=== PATIENT | female | born 1985 | race Caucasian/White ===

== ENCOUNTER 2020-09-03 21:19 | Emergency (ER) | payer MEDICARE, MEDICAID, SELFPAY ==
[2020-09-03 21:27] VITALS: BP 138/88; BP 166/91; PULSE 73; PULSE 89; RESP 18; TEMP 36.8; O2SAT 97; O2SAT 98; BMI 39.4
[2020-09-03 22:11] LABS: MANUAL DIFF FLAG NO
[2020-09-03 22:12] LABS: Basophils Absolute Auto 0.1 X10*3/uL (0.0-0.2); Basophils Percent Auto 1.2 % (0-2); Eosinophils Absolute Auto 0.2 X10*3/uL (0.0-0.4); Eosinophils Percent Auto 2.4 % (0-4); Hematocrit 42.8 % (37-47); Hemoglobin 14.3 g/dl (12.0-16.0); Imm Gran Abs Auto 0.05 X10*3/uL (0.00-0.03); Imm Gran Pct Auto 0.5 % (0.0-0.4); Lymphocytes Absolute Auto 3.7 X10*3/uL (1.2-4.9); Lymphocytes Percent Auto 36.7 % (20-40); Mean Corpuscular HGB Conc 33.4 g/dl (31.0-35.0); Mean Corpuscular Hemoglobin 30.3 pg (27.0-33.0); Mean Corpuscular Volume 90.7 fL (80-98); Mean Platelet Volume 9.7 fL (9.4-12.3); Monocytes Absolute Auto 0.8 X10*3/uL (0.1-1.2); Monocytes Percent Auto 7.7 % (2-11); Neutrophils Absolute Auto 5.2 X10*3/uL (2.0-8.3); Neutrophils Percent Auto 51.5 % (45-73); Platelet Count 303 X10*3/uL (160-400); Red Blood Count 4.72 X10*6/uL (4.20-5.50); Red Cell Distribution Width 12.2 % (11.0-16.0); White Blood Count 10.1 X10*3/uL (4.8-10.8)
--- NOTE | 2020-09-03 22:13 | ED.ABDPAIN ---
HPI - Abdominal Pain General Chief Complaint: Abdominal Pain Stated Complaint: abd pain x 3 months Time Seen by Provider: 09/03/20 21:39 Source: patient Limitations: no limitations History of Present Illness HPI narrative: This is a 35-year-old female who presents with recurrence of known left upper quadrant pain that she states she has been pending GI evaluation since May without successful establishment of an appointment. This pain is sharp and stabbing in nature and she states does not radiate and is not associated with fevers, chills, nausea, vomiting, diarrhea, urinary pain / burning / frequency. Related Data Allergies Allergy/AdvReac Type Severity Reaction Status Date / Time acetaminophen [From TYLENOL] Allergy Unknown stomach Verified 09/03/20 21:27 ulcers gluten [GLUTEN] Allergy Unknown UNKNOWN Verified 09/03/20 21:27 latex [LATEX] Allergy Unknown rash/hives Verified 09/03/20 21:27 lithium [LITHIUM] Allergy Unknown hives Verified 09/03/20 21:27 phenobarbital Allergy Unknown UNKNOWN Verified 09/03/20 21:27 risperidone [From RISPERDAL] Allergy Unknown hives Verified 09/03/20 21:27 shellfish derived Allergy Unknown ANAPHYLAXIS Verified 09/03/20 21:27 [SHELLFISH DERIVED] Review of Systems Review of Systems Pertinent positives and negatives as stated in HPI 10 point review of systems is otherwise negative. Physical Exam Vital Signs: Vital Signs: Vital Signs Temp Pulse Resp BP Pulse Ox 09/03/20 22:47 98.5 F 74 20 135/85 97 09/03/20 21:27 98.3 F 73 18 166/91 H 97 Body Mass Index 39.4 VITAL SIGNS: Reviewed. GENERAL: Well developed, well nourished, in no acute distress. HEAD: Normocephalic/atraumatic, EYES: PERRLA, EOMI intact without pain, no nystagmus/pallor/icterus noted EARS: Ext canals without abnormality, TMs non-bulging and non-erythematous NOSE: Nares patent bilateral OROPHARYNX: no oral lesions noted, posterior pharynx clear and non-erythematous without noted tonsillar enlargement/erythema/exudates NECK: Supple, no adenopathy LUNGS: Normal breath sounds. No adventitious sounds or accessory muscle use. SpO2<97%> CARDIOVASCULAR: Regular rate and rhythm without noted murmurs, no JVD or lower extremity edema. ABDOMEN: Soft, Mild tenderness to palpation without rebound at the left upper quadrant, non-distended with bowel sounds. No rigidity. No guarding. No palpable masses or hernias noted MUSCULOSKELETAL: No tenderness, deformities, or effusions noted on gross inspection. EXTREMITIES: No cyanosis, clubbing or edema. SKIN: Inspection of the skin reveals no rashes, ulcerations, jaundice, pallor, or petechiae. NEUROLOGIC: Alert and oriented x 4. Strength and sensation to light touch were grossly intact x 4. Course Course Course Narrative: This is a 35-year-old female with history and clinical presentation most consistent with likely gastritis versus ulcer doubt tip pancreatitis but will also rule out splenic etiologies. Of note, patient had CT scan in May without acute splenic abnormalities noted at that time. Review of all investigations negative for any evidence infection, anemia, pancreatitis, spleen dysfunction, and KUB is consistent with moderate stool burden likely contributing to patient's underlying GERD. Significant delay due to systems issues and patient left without discharge paperwork. MDM - Abdominal Pain Lab Data Result diagrams: 09/03/20 22:05 09/03/20 22:05 Labs: Lab Results 09/03/20 09/03/20 09/03/20 Range/Units 22:05 22:05 22:05 WBC 10.1 (4.8-10.8) X10*3/uL RBC 4.72 (4.20-5.50) X10*6/uL Hgb 14.3 (12.0-16.0) g/dl Hct 42.8 (37-47) % MCV 90.7 (80-98) fL MCH 30.3 (27.0-33.0) pg MCHC 33.4 (31.0-35.0) g/dl RDW 12.2 (11.0-16.0) % Plt Count 303 (160-400) X10*3/uL MPV 9.7 (9.4-12.3) fL Immature Gran % (Auto) 0.5 H (0.0-0.4) % Neut % (Auto) 51.5 (45-73) % Lymph % (Auto) 36.7 (20-40) % [place] % (Auto) 7.7 (2-11) % Eos % (Auto) 2.4 (0-4) % Baso % (Auto) 1.2 (0-2) % Lymph # (Auto) 3.7 (1.2-4.9) X10*3/uL [place] # (Auto) 0.8 (0.1-1.2) X10*3/uL Eos # (Auto) 0.2 (0.0-0.4) X10*3/uL Baso # (Auto) 0.1 (0.0-0.2) X10*3/uL Abs Immat Gran (auto) 0.05 H (0.00-0.03) X10*3/uL Absolute Neuts (auto) 5.2 (2.0-8.3) X10*3/uL Absolute Nucleated RBC 0.000 (0.0-0.012) X10*3/uL Nucleated RBC % (auto) 0.0 (0.0-0.2) /100WBC Sodium 137 (135-145) mmol/L Potassium 3.9 (3.3-5.1) mmol/l Chloride 105 (96-108) mmol/L Carbon Dioxide 24 (22-29) mmol/L Anion Gap 12 (12-20) BUN 10 (9-16) mg/dL Creatinine 0.76 (0.5-1.4) mg/dL Estim Creat Clear Calc 115.1 Estimated GFR > 60 Random Glucose 110 (60-115) mg/dL Calcium 8.8 (8.4-10.2) mg/dL Total Bilirubin 0.2 (0.0-1.0) mg/dL AST 16 (5-31) U/L ALT 18 (0-31) U/L Alkaline Phosphatase 65 (39-117) U/L Total Protein 7.3 (6.5-8.0) g/dL Albumin 4.3 (3.5-5.0) g/dL Lipase 27 (8-78) U/L Urine Color YELLOW Urine Appearance CLEAR Urine pH 6.0 (5.0-8.0) Ur Specific [place] 1.025 (1.005-1.025) Urine Protein NEG (NEG-TRACE) MG/DL Urine Glucose (UA) NEG (NEG) MG/DL Urine Ketones NEG (NEG) MG/DL Urine Blood NEG (NEG) Urine Nitrite NEG (NEG) Ur Leukocyte Esterase NEG (NEG) Urine Test NEGATIVE (NEGATIVE) Discharge Plan Discharge Clinical Impression: Chronic constipation Gastritis Qualifiers: Gastritis type: unspecified gastritis Chronicity: chronic Gastritis bleeding: without bleeding Qualified Code(s): K29.50 - Unspecified chronic gastritis without bleeding Patient Disposition: Home, Self-Care Instructions: Gastritis (ED), Diet for Stomach Ulcers and Gastritis (ED) Additional Instructions: You need to follow-up with your primary care provider for further evaluation and referral. The patient and/or family acknowledge understanding of results (as applicable), diagnosis, treatment plan, need for follow up, and symptoms that should prompt a return to the emergency room. Referrals: Kristina Ivy MD [Primary Care Provider] - 2 days PMF Past Medical History Source: nursing notes reviewed Medical History Asthma Celiac disease Gastritis GERD (gastroesophageal reflux disease) Hypothyroid Social History Social History Advance Directives: No
[2020-09-03 22:14] LABS: Glucose Urine UA NEG (NEG); Leukocyte Esterase Urine NEG (NEG); Nitrite Urine NEG (NEG); Specific Gravity - Urine 1.025 (1.005-1.025); Urine Blood NEG (NEG); Urine Ketones NEG (NEG); Urine Protein NEG (NEG-TRACE)
[2020-09-03 22:17] LABS: Color Urine YELLOW; UACC Culture Trigger NO
[2020-09-03 22:18] LABS: Appearance Urine CLEAR
[2020-09-03 22:20] LABS: UPreg QC Valid YES; Urine Pregnancy NEGATIVE (NEGATIVE)
[2020-09-03 22:38] LABS: Alanine Aminotransferase 18 U/L (0-31); Albumin Level 4.3 g/dL (3.5-5.0); Alkaline Phosphatase 65 U/L (39-117); Anion Gap 12 (12-20); Aspartate Amino Transferase 16 U/L (5-31); Bilirubin Total 0.2 mg/dL (0.0-1.0); Blood Urea Nitrogen 10 mg/dL (9-16); Calcium 8.8 mg/dL (8.4-10.2); Carbon Dioxide 24 mmol/L (22-29); Chloride 105 mmol/L (96-108); Creatinine Clr Calc Pharmacy 115.1; Estimated Glomerular Filt Rate > 60; Glucose Random 110 mg/dL (60-115); Lipase 27 U/L (8-78); Potassium 3.9 mmol/l (3.3-5.1); Sodium 137 mmol/L (135-145); Total Protein 7.3 g/dL (6.5-8.0)
[2020-09-03 22:47] VITALS: BP 135/85; PULSE 74; RESP 20; TEMP 36.9; O2SAT 97
--- NOTE | 2020-09-03 22:48 | XR_ITS ---
EXAMINATION: XR ABDOMEN KUB CLINICAL INDICATION: Left lower quadrant discomfort, question constipation COMPARISON: 07/03/2020 TECHNIQUE: AP view of the abdomen. FINDINGS: Bowel gas pattern is nonobstructive. Mild to moderate stool is present in the colon. No suspicious calcifications are seen. Lung bases appear well aerated. No acute osseous findings are seen. IMPRESSION: Mild to moderate volume of stool. Nonobstructive bowel gas pattern.
== END 2020-09-04 01:07 | disposition home or self-care (01) ==
PROVIDERS: Emergency Provider Student in an Organized Health Care Education/Training Program; PCP Internal Medicine
DX: K29.70 Gastritis, unspecified, without bleeding (principal); K59.00 Constipation, unspecified; F12.90 Cannabis use, unspecified, uncomplicated
CPT/HCPCS: 36415; 74018; 80053; 81003; 81025; 83690; 85025; 99283

== ENCOUNTER 2020-09-06 21:11 | Emergency (ER) | payer MEDICARE, MEDICAID, SELFPAY ==
[2020-09-06 21:26] VITALS: BP 149/86; PULSE 77; RESP 16; TEMP 36.8; O2SAT 98; BMI 39.3
--- NOTE | 2020-09-06 22:38 | ED.SKABFB ---
HPI - Skin/Abscess/Foreign Bdy General Chief complaint: Skin/Abscess/Foreign Body Stated complaint: CYST Time Seen by Provider: 09/06/20 22:37 Source: patient Mode of arrival: ambulatory Limitations: no limitations History of Present Illness HPI narrative: This is a 35-year-old female who presents with 2 days of something on her back that she states is possibly assist and states that her boyfriend tried to pop it . She states she was unable to get into her primary care provider because there are no available appointment. Patient denies any fevers, chills, Or more diffuse back pain. Related Data Previous Rx's Medication Instructions Recorded cephalexin 500 mg PO Q12H #10 cap 09/06/20 Allergies Allergy/AdvReac Type Severity Reaction Status Date / Time acetaminophen [From TYLENOL] Allergy Unknown stomach Verified 09/03/20 21:27 ulcers gluten [GLUTEN] Allergy Unknown UNKNOWN Verified 09/03/20 21:27 latex [LATEX] Allergy Unknown rash/hives Verified 09/03/20 21:27 lithium [LITHIUM] Allergy Unknown hives Verified 09/03/20 21:27 phenobarbital Allergy Unknown UNKNOWN Verified 09/03/20 21:27 risperidone [From RISPERDAL] Allergy Unknown hives Verified 09/03/20 21:27 shellfish derived Allergy Unknown ANAPHYLAXIS Verified 09/03/20 21:27 [SHELLFISH DERIVED] Review of Systems Review of Systems: Pertinent positives and negatives as stated in HPI and 10 point review of systems is otherwise negative. PMFSH Past Medical History Source: nursing notes reviewed Medical History Asthma Celiac disease Gastritis GERD (gastroesophageal reflux disease) Hypothyroid Social History Social History Alcohol intake: never Smoked in Last 30 Days: No Use of substances other than those prescribed or required for medical reasons: Yes Substance Use Type: Marijuana Advance Directives: No Advance Directives Information Provided: Yes Physical Exam Vital Signs: Vital Signs: Vital Signs Temp Pulse Resp BP Pulse Ox 09/06/20 21:26 98.2 F 77 16 149/86 H 98 Body Mass Index 39.3 VITAL SIGNS: Reviewed. GENERAL: Well developed, well nourished, in no acute distress. HEAD: Normocephalic/atraumatic, EYES: PERRLA, EOMI intact without pain, no nystagmus/pallor/icterus noted EARS: Ext canals without abnormality, TMs non-bulging and non-erythematous NOSE: Nares patent bilateral OROPHARYNX: no oral lesions noted, posterior pharynx clear and non-erythematous without noted tonsillar enlargement/erythema/exudates NECK: Supple, no adenopathy LUNGS: Normal breath sounds. No adventitious sounds or accessory muscle use. SpO2<98%> BACK: There is a noted folliculitis without fluctuance to the mid back with surrounding induration and a noted pustule. CARDIOVASCULAR: Regular rate and rhythm without noted murmurs, no JVD or lower extremity edema. ABDOMEN: Soft, non-tender, non-distended with bowel sounds. No rigidity. No guarding. No palpable masses or hernias noted MUSCULOSKELETAL: No tenderness, deformities, or effusions noted on gross inspection. EXTREMITIES: No cyanosis, clubbing or edema. SKIN: Inspection of the skin reveals no rashes, ulcerations, jaundice, pallor, or petechiae. NEUROLOGIC: Alert and oriented x 4. Strength and sensation to light touch were grossly intact x 4. Course Course Course Narrative: This is a 35-year-old female with history and clinical presentation consistent with folliculitis. Patient was discharged to home in stable condition. Discharge Plan Discharge Clinical Impression: Folliculitis Patient Disposition: Home, Self-Care Instructions: Folliculitis (ED), Warm Compress or Soak (ED) Additional Instructions: 1. use warm moist compresses to the area 2 to 3 times a day and continue to gently express any pus, but do not use your nails. The patient and/or family acknowledge understanding of results (as applicable), diagnosis, treatment plan, need for follow up, and symptoms that should prompt a return to the emergency room. Prescriptions: New cephalexin 500 mg capsule 500 mg PO Q12H Qty: 10 RF: 0 Referrals: Physician,Unknown [Primary Care Provider] - 2 days
== END 2020-09-06 23:05 | disposition home or self-care (01) ==
PROVIDERS: Emergency Provider Student in an Organized Health Care Education/Training Program
DX: L73.9 Follicular disorder, unspecified (principal)
CPT/HCPCS: 99283; 99284

== ENCOUNTER 2020-09-10 16:51 | Emergency (ER) | payer MEDICARE, MEDICAID, SELFPAY ==
[2020-09-10 17:07] VITALS: BP 103/72; PULSE 86; RESP 18; TEMP 36.4; O2SAT 97; BMI 39.1
--- NOTE | 2020-09-10 17:34 | ED_ITS ---
HPI - Skin/Abscess/Foreign Bdy General Chief complaint: Skin/Abscess/Foreign Body Stated complaint: lump Time Seen by Provider: 09/10/20 16:57 Source: patient Mode of arrival: ambulatory Limitations: no limitations History of Present Illness HPI narrative: Seen here 5 days ago for abscess to left back. Started on cephalexin. Having worsening redness, pain at the site. No fevers/chills. Taking antibiotics as prescribed. MD complaint: abscess/boil Onset (ago): day(s) Tetanus up to date: yes Location: back Severity: mild Quality: sharp Pain Consistency: constant Relieving factors: none Exacerbating factors: none Context: none Associated symptoms: denies other symptoms Related Data Previous Rx's Medication Instructions Recorded cephalexin 500 mg PO Q12H #10 cap 09/06/20 sulfamethoxazole-trimethoprim 1 tab PO Q12H #14 tab 09/10/20 [Bactrim DS] Allergies Allergy/AdvReac Type Severity Reaction Status Date / Time acetaminophen [From TYLENOL] Allergy Unknown stomach Verified 09/10/20 17:12 ulcers gluten [GLUTEN] Allergy Unknown UNKNOWN Verified 09/10/20 17:12 latex [LATEX] Allergy Unknown rash/hives Verified 09/10/20 17:12 lithium [LITHIUM] Allergy Unknown hives Verified 09/10/20 17:12 phenobarbital Allergy Unknown UNKNOWN Verified 09/10/20 17:12 risperidone [From RISPERDAL] Allergy Unknown hives Verified 09/10/20 17:12 shellfish derived Allergy Unknown ANAPHYLAXIS Verified 09/10/20 17:12 [SHELLFISH DERIVED] Review of Systems Review of Systems: Yes all other systems are reviewed and are negative Constitutional: Constitutional: Reports no additional constitutional complaints, Denies body ache(s), Denies chills, Denies fever(s), Denies headache(s) and Denies weakness Eyes: Eyes: Reports no additional eye complaints and Denies change in vision ENT: Reports system reviewed and no additional complaints, except as documented, Denies dizziness, Denies headache(s), Denies nasal congestion, Denies nasal discharge and Denies neck pain Cardiovascular: Cardiovascular: Reports no additional cardiovascular complaints, Denies chest pain, Denies leg edema and Denies dyspnea Respiratory: Respiratory: Reports no additional respiratory complaints, Denies cough and Denies dyspnea Gastrointestinal: Gastrointestinal: Reports no additional gastrointestinal complaints, Denies abdominal pain, Denies diarrhea, Denies nausea and Denies vomiting Genitourinary: Genitourinary: Reports no additional female genitourinary complaints and Denies urinary incontinence Musculoskeletal: Musculoskeletal: Reports no additional musculoskeletal complaints, Denies back pain, Denies arthralgias, Denies joint swelling, Denies neck pain, Denies numbness and Denies tingling Integumentary/Breasts: Skin/Breast: Reports system reviewed and no additional complaints, except as docu, Reports furuncle and Denies rash Neurologic: Reports system reviewed and no additional complaints, except as documented, Denies Abnormal speech present, Denies dizziness, Denies headache(s), Denies numbness, Denies tingling and Denies weakness [facility] Past Medical History Attestation statement: The following information was validated with the patient. Source: old records reviewed, obtained from family and nursing notes reviewed Medical History Asthma Celiac disease Gastritis GERD (gastroesophageal reflux disease) Hypothyroid Social History Social History Alcohol intake: never Substance Use Type: Marijuana Advance Directives: No Advance Directives Information Provided: No Physical Exam Vital Signs: Vital Signs: Vital Signs Temp Pulse Resp BP Pulse Ox 09/10/20 17:07 97.5 F 86 18 103/72 97 Body Mass Index 39.1 Const: General: cooperative, healthy appearing, comfortable and no acute distress Orientation/consciousness: patient oriented x3 Limitations: no limitations HENMT: Head: Yes normal to inspection Ears: hearing grossly normal bilaterally General nose exam: Normal external nose present Face and sinus: Yes normal facial exam Mouth: Normal oral and palatal mucosa present Throat: Yes posterior oropharynx normal Eyes: General: appearance normal, both eyes and all related structures Pupils: Equal, round and reactive pupils present Neck: Neck: Yes normal visual inspection Chest: Chest palpation & inspection: normal inspection of the chest Resp: Effort & Inspection: normal respiratory effort Auscultation: clear to auscultation bilaterally Cardio: Rate: regular rate Rhythm: regular rhythm Peripheral pulses: Peripheral pulses 2+ throughout GI: Inspection: Yes normal to inspection Palpation (GI): Soft to palpation and nontender Auscultation: normal bowel sounds Back/Spine/Pelvis: Thoracic/Lumbar Spine: thoracic and lumbar spine normal to inspection Skin: Other: To the left mid back there is a circular abscess with surrounding erythema and tenderness. No palpable fluctuance or pointing noted. General skin exam: no rashes or lesions noted Neuro: General: patient oriented x3, no focal motor deficits and normal sensation to monofilament Cranial nerves: Yes Equal, round and reactive pupils present Cognition (Neuro): normal cognition Speech: No Abnormal speech present Gait exam (Neuro): Normal gait present Motor exam (neuro): 5/5 motor strength present throughout Extrem: General: Yes normal to inspection Course Course Course Narrative: Abscess to left back on cephalexin with worsening redness and tenderness. Abscess not fluctuant enough to I&D. WIll add bactrim, have patient continue warm soaks. Reviewed worrisome signs symptoms the patient when to return to the emergency department. Comfortable with discharge home. Discharge Plan Discharge Clinical Impression: Cellulitis Qualifiers: Site of cellulitis: trunk Site of cellulitis of trunk: back Qualified Code(s): L03.312 - Cellulitis of back [any part except buttock] Abscess of skin or subcutaneous tissue Qualifiers: Site of cutaneous abscess: other site Qualified Code(s): L02.818 - Cutaneous abscess of other sites Patient Disposition: Home, Self-Care Instructions: Cellulitis (ED), Abscess (ED) Additional Instructions: We are unable to open this today. Return if it appears more squishy like a pimple Warm compresses and/or warm tea bags four times daily. Continue your other antibiotic. Prescriptions: New sulfamethoxazole-trimethoprim [Bactrim DS] 800-160 mg tablet 1 tab PO Q12H Qty: 14 RF: 0 No Action cephalexin 500 mg capsule 500 mg PO Q12H Qty: 10 RF: 0 Referrals: Physician,Unknown [Primary Care Provider] - 2 days
== END 2020-09-10 17:45 | disposition home or self-care (01) ==
LOC: HO.ED 17:27
PROVIDERS: Emergency Provider Emergency Medicine
DX: L03.312 Cellulitis of back [any part except buttock and flank] (principal); Z79.899 Other long term (current) drug therapy
CPT/HCPCS: 99284

== ENCOUNTER 2021-12-07 09:20 | Outpatient (REF) | payer MEDICARE, MEDICAID, SELFPAY ==
--- NOTE | ~2021-12-07 | XR_ITS ---
EXAMINATION: XR CHEST CLINICAL INFORMATION: Cough COMPARISON: Previous chest x-ray June 2020 TECHNIQUE: 2 views of the chest were obtained. FINDINGS: The cardiac and mediastinal contours are normal. The lungs are clear. There is no pleural effusion or pneumothorax. There are degenerative changes of the spine. XR/XR chest 2V IMPRESSION: No evidence for acute disease in the chest.
== END 2021-12-07 09:21 | disposition home or self-care (01) ==
LOC: HO.XRAY 09:20
PROVIDERS: Visit Provider Physician Assistant Medical
DX: R05.9 Cough, unspecified (principal)
CPT/HCPCS: 71046

== ENCOUNTER 2022-01-03 08:51 | Emergency (ER) | payer MEDICARE, MEDICAID, SELFPAY ==
--- NOTE | ~2022-01-03 | CT_ITS ---
EXAMINATION: CT ABDOMEN AND PELVIS WITH CONTRAST CLINICAL INFORMATION: Right lower quadrant tenderness COMPARISON: CT abdomen and pelvis 07/03/2020 TECHNIQUE: Multidetector volumetric images were obtained from the superior aspect of the liver through the pubic symphysis following administration 85 mL of Omnipaque 350 intravenous contrast. Sagittal and coronal reformatted images were obtained on the technologist's workstation. Oral contrast: No This CT examination was performed using dose optimization techniques as appropriate, variously including the following: *Automated exposure control *Adjustment of mA and/or kV according to patient size (this includes techniques or standardized protocols for targeted exams where dose is matched to indication/reason for exam; i.e. extremities or head) *Use of iterative reconstruction technique DLP: 850 mGy-cm FINDINGS: LUNG BASES: The visualized lung bases are unremarkable. LIVER, GALLBLADDER, AND BILIARY TREE: The liver is normal in size, shape, and attenuation. No focal hepatic lesion or biliary ductal dilatation is present. The gallbladder is unremarkable with no evidence of radiopaque gallstones, gallbladder wall thickening, or obvious pericholecystic inflammatory changes. PANCREAS: Unremarkable. SPLEEN: Unremarkable. ADRENAL GLANDS: Unremarkable. KIDNEYS AND URETERS: The kidneys are normal in size, shape, and attenuation. No hydronephrosis, hydroureter, or calculi seen. No perinephric stranding. BLADDER: Unremarkable. GASTROINTESTINAL TRACT: There is moderate to large scattered stool seen throughout the colon, most prominent within the ascending colon and cecum. There is no obstruction or distention. The small bowel loops are normal caliber. Appendix is normal caliber. ABDOMINAL WALL: There is a small lumbar canal hernia containing fat. LYMPH NODES: Normal. VASCULAR: Unremarkable. PELVIC VISCERA: UNREMARKABLE. OSSEOUS STRUCTURES: There is normal lumbar lordosis. The vertebral heights, alignment and disc heights are normal. No lytic or sclerotic process seen. CT/CT abdomen pelvis w con IMPRESSION: Moderate to significant constipation. No obstruction or free air seen. Appendix is normal. Fleischner guidelines were followed.
[2022-01-03 08:53] VITALS: BP 119/89; PULSE 87; RESP 19; TEMP 36.6; O2SAT 99; BMI 38.7
--- NOTE | 2022-01-03 09:36 | ED_ITS ---
HPI - Abdominal Pain General Chief Complaint: Abdominal Pain Stated Complaint: lower abd pain Time Seen by Provider: 01/03/22 09:35 Source: patient Mode of arrival: ambulatory Limitations: no limitations History of Present Illness HPI narrative: 36 year old female presents for right lower quadrant pain that started last night. Pain radiates to the back, is a constant sharp pain that feels stabbing in nature and is a 10/10. Patient is continuously nauseous. She did vomit once last night. Patient has not eaten since dinner last night. Patient has only had a 8 years ago, no other abdominal surgeries. Patient has started her menstrual period today. She has been having normal bowel movements, nothing dark tarry or bloody. She is passing gas. She has no dysuria, no fevers. Patient tells me all 3 of her siblings have had appendectomies. MD elicited complaint: abdominal pain Pertinent past history: other (colitis) Onset (ago): day(s) (1) Pain Consistency: constant Location: R flank Severity: severe Pain scale (0-10): 10 Quality: stabbing Radiation: R flank Associated symptoms: nausea and vomiting Related Data Date of Last Menstrual Period: 01/03/22 Previous Rx's Medication Instructions Recorded cephalexin 500 mg capsule 500 mg PO Q12H #10 cap 09/06/20 sulfamethoxazole 800 1 tab PO Q12H #14 tab 09/10/20 mg-trimethoprim 160 mg tablet (Bactrim DS) bisacodyl 5 mg tablet,delayed 10 mg PO BEDTIME 2 Days #4 tab 01/03/22 release (Dulcolax (bisacodyl)) polyethylene glycol 3350 17 gram 17 g PO BID #100 ea 01/03/22 oral powder packet (Miralax) Allergies Allergy/AdvReac Type Severity Reaction Status Date / Time acetaminophen [From TYLENOL] Allergy Unknown stomach Verified 01/03/22 10:11 ulcers gluten [GLUTEN] Allergy Unknown UNKNOWN Verified 01/03/22 10:11 latex [LATEX] Allergy Unknown rash/hives Verified 01/03/22 10:11 lithium [LITHIUM] Allergy Unknown hives Verified 01/03/22 10:11 phenobarbital Allergy Unknown UNKNOWN Verified 01/03/22 10:11 risperidone [From RISPERDAL] Allergy Unknown hives Verified 01/03/22 10:11 shellfish derived Allergy Unknown ANAPHYLAXIS Verified 01/03/22 10:11 [SHELLFISH DERIVED] Review of Systems Constitutional: Denies body ache(s), Denies chills, Denies fatigue, Denies fever(s), Denies headache(s), Denies malaise and Denies weakness Eyes: Denies diplopia Denies vertigo, Denies dizziness, Denies otalgia, Denies headache(s), Denies mouth pain, Denies post nasal drip, Denies sinus pain, Denies sinus pressure, Denies sore throat and Denies throat swelling Cardiovascular: Denies chest pain, Denies syncope, Denies leg edema, Denies ligh theadedness, Denies Loss of Consciousness, Denies palpitations and Denies dyspnea Respiratory: Denies chest congestion, Denies cough and Denies dyspnea Gastrointestinal: Reports abdominal pain, Denies hematochezia, Denies constipation, Denies diarrhea and Denies vomiting Musculoskeletal: Reports no additional musculoskeletal complaints Denies confusion, Denies vertigo, Denies dizziness, Denies syncope, Denies headache(s) and Denies weakness Psychiatric: Denies anxiety, Denies confusion and Denies depression Endocrine: Denies fatigue and Denies palpitations Allergic/Immunologic: Denies throat swelling PMFSH Past Medical History Medical History Asthma Celiac disease Gastritis GERD (gastroesophageal reflux disease) Hypothyroid Date of Last Menstrual Period: 01/03/22 Social History Social History Alcohol intake: never Patient Tobacco Use Status: Former Tobacco user Use of substances other than those prescribed or required for medical reasons: Yes Substance Use Type: Marijuana Substance Use Frequency: Occasionally Advance Directives: No Advance Directives Information Provided: No Patient : No Physical Exam ED Vital Signs: Vital Signs - 24 hr 01/03/22 08:53 01/03/22 09:45 01/03/22 12:29 Temperature 98 F 97.9 F Pulse Rate 87 80 81 Respiratory Rate 19 15 18 Blood Pressure 119/89 110/73 125/77 Pulse Oximetry 99 96 97 BMI result Body Mass Index 38.7 Const General: no acute distress, alert and awake; No confusion Nutritional Appearance: obese Orientation/consciousness: patient oriented x3 and No confusion Limitations: no limitations HENMT Head: Yes normal to inspection and Yes No palpable skull fracture present Ears: hearing grossly normal bilaterally General nose exam: Normal external nose present Face and sinus: Yes normal facial exam Mouth: Normal oral and palatal mucosa present Throat: Yes posterior oropharynx normal Eyes Pupils: Equal, round and reactive pupils present EOM: EOMs intact bilaterally Neck Neck: Yes normal visual inspection, Yes full ROM, Yes no lymphadenopathy, Yes no meningeal signs, Yes trachea midline and Yes supple Resp Effort & Inspection: normal respiratory effort and able to speak in complete sentences Auscultation: clear to auscultation bilaterally, no crackles, no rales, no rhonchi and no wheezes Cardio Rate: regular rate Rhythm: regular rhythm Heart sounds: S1 normal heart sound present and S2 normal heart sound present GI Inspection: Yes Abdominal panniculus present and Yes obesity Palpation (GI): Soft to palpation, not firm, Tenderness to palpation present (GI) in the RLQ, no guarding and not rigid Percussion: Yes normal to percussion Auscultation: normal bowel sounds General: Yes no CVA tenderness Back/Spine/Pelvis Back: no CVA tenderness Skin General skin exam: no rashes or lesions noted Neuro General: patient oriented x3, no meningeal signs, no focal motor deficits and No confusion Cranial nerves: Yes Equal, round and reactive pupils present Extrem General: Yes normal to inspection and Yes full ROM Psych Appearance: grossly normal Mental Status: mental status grossly normal Speech and movement: Normal speech and movement present Affect: normal affect Attitude: cooperative Thought process: Normal thought process present Course Course Course Narrative: 36-year-old female with right lower quadrant abdominal pain that started last night. On exam, patient has tender in right lower quadrant, no guarding. Labs are unremarkable, urine has blood in it, patient is on her period. CT shows constipation, no other acute pathology. Counseled patient to take MiraLax, stool softener, eat foods with fiber, drink 2-3 L of water a day. Gave return precautions of not being able to stool for 3 days, worsening pain, fevers. All patient's questions were answered, patient verbalized agreement understanding of the plan. CT/CT abdomen pelvis w con IMPRESSION: Moderate to significant constipation. No obstruction or free air seen. Appendix is normal. MDM - Abdominal Pain Lab Data Result diagrams: 01/03/22 10:26 01/03/22 10:26 Labs: Lab Results 01/03/22 01/03/22 01/03/22 Range/Units 10:20 10:20 10:26 WBC 6.8 (4.8-10.8) X10*3/uL RBC 4.49 (4.20-5.50) X10*6/uL Hgb 13.4 (12.0-16.0) g/dl Hct 40.0 (37.0-47.0) % MCV 89.1 (80.0-98.0) fL MCH 29.8 (27.0-33.0) pg MCHC 33.5 (31.0-35.0) g/dl RDW 13.1 (11.0-16.0) % Plt Count 280 (160-400) X10*3/uL MPV 9.7 (9.4-12.3) fL Immature Gran % (Auto) 1.0 H (0.0-0.4) % Neut % (Auto) 55.1 (45-73) % Lymph % (Auto) 35.5 (20-40) % [place] % (Auto) 6.2 (2-11) % Eos % (Auto) 1.3 (0-4) % Baso % (Auto) 0.9 (0-2) % Lymph # (Auto) 2.4 (1.2-4.9) X10*3/uL [place] # (Auto) 0.4 (0.1-1.2) X10*3/uL Eos # (Auto) 0.1 (0.0-0.4) X10*3/uL Baso # (Auto) 0.1 (0.0-0.2) X10*3/uL Abs Immat Gran (auto) 0.07 H (0.00-0.03) X10*3/uL Absolute Neuts (auto) 3.8 (2.0-8.3) x10*3/uL Absolute Nucleated RBC 0.000 (0.0-0.012) X10*3/uL Nucleated RBC % (auto) 0.0 (0.0-0.2) /100WBC Sodium (135-145) mmol/L Potassium (3.3-5.1) mmol/L Chloride (96-108) mmol/L Carbon Dioxide (22-29) mmol/L Anion Gap (12-20) BUN (9-16) mg/dL Creatinine (0.5-1.4) mg/dL Estim Creat Clear Calc Estimated GFR Random Glucose (60-115) mg/dL Calcium (8.4-10.2) mg/dL Total Bilirubin (0.0-1.0) mg/dL Direct Bilirubin (0.0-0.5) mg/dL AST (5-31) U/L ALT (0-31) U/L Alkaline Phosphatase (39-117) U/L Total Protein (6.5-8.0) g/dL Albumin (3.5-5.0) g/dL Lipase (8-78) U/L Urine Color RED A Urine Appearance CLOUDY Urine pH 7.0 (5.0-8.0) Ur Specific [place] 1.020 (1.005-1.025) Urine Protein 2+ H (NEG-TRACE) MG/DL Urine Glucose (UA) NEG (NEG) MG/DL Urine Ketones 5 (NEG) MG/DL Urine Blood 3+ H (NEG) Urine Nitrite NEG (NEG) Ur Leukocyte Esterase NEG (NEG) Urine RBC 15-29 H (0) /HPF Urine WBC 1-4 (0-4) /HPF Ur Squamous Epith Cells 3+ /LPF Ur Renal Epithelial Cell 3+ /LPF Urine Bacteria NONE /LPF Urine Test NEGATIVE (NEGATIVE) 01/03/22 Range/Units 10:26 WBC (4.8-10.8) X10*3/uL RBC (4.20-5.50) X10*6/uL Hgb (12.0-16.0) g/dl Hct (37.0-47.0) % MCV (80.0-98.0) fL MCH (27.0-33.0) pg MCHC (31.0-35.0) g/dl RDW (11.0-16.0) % Plt Count (160-400) X10*3/uL MPV (9.4-12.3) fL Immature Gran % (Auto) (0.0-0.4) % Neut % (Auto) (45-73) % Lymph % (Auto) (20-40) % [place] % (Auto) (2-11) % Eos % (Auto) (0-4) % Baso % (Auto) (0-2) % Lymph # (Auto) (1.2-4.9) X10*3/uL [place] # (Auto) (0.1-1.2) X10*3/uL Eos # (Auto) (0.0-0.4) X10*3/uL Baso # (Auto) (0.0-0.2) X10*3/uL Abs Immat Gran (auto) (0.00-0.03) X10*3/uL Absolute Neuts (auto) (2.0-8.3) x10*3/uL Absolute Nucleated RBC (0.0-0.012) X10*3/uL Nucleated RBC % (auto) (0.0-0.2) /100WBC Sodium 137 (135-145) mmol/L Potassium 4.5 (3.3-5.1) mmol/L Chloride 106 (96-108) mmol/L Carbon Dioxide 24 (22-29) mmol/L Anion Gap 12 (12-20) BUN 15 (9-16) mg/dL Creatinine 0.72 (0.5-1.4) mg/dL Estim Creat Clear Calc 118.9 Estimated GFR > 60 Random Glucose 99 (60-115) mg/dL Calcium 9.3 (8.4-10.2) mg/dL Total Bilirubin 0.2 (0.0-1.0) mg/dL Direct Bilirubin < 0.2 (0.0-0.5) mg/dL AST 15 (5-31) U/L ALT 17 (0-31) U/L Alkaline Phosphatase 60 (39-117) U/L Total Protein 6.8 (6.5-8.0) g/dL Albumin 4.2 (3.5-5.0) g/dL Lipase 17 (8-78) U/L Urine Color Urine Appearance Urine pH (5.0-8.0) Ur Specific [place] (1.005-1.025) Urine Protein (NEG-TRACE) MG/DL Urine Glucose (UA) (NEG) MG/DL Urine Ketones (NEG) MG/DL Urine Blood (NEG) Urine Nitrite (NEG) Ur Leukocyte Esterase (NEG) Urine RBC (0) /HPF Urine WBC (0-4) /HPF Ur Squamous Epith Cells /LPF Ur Renal Epithelial Cell /LPF Urine Bacteria /LPF Urine Test (NEGATIVE) Discharge Plan Discharge Clinical Impression: Abdominal pain, Constipation Patient Disposition: Home, Self-Care Instructions: Constipation (ED), High Fiber Diet (ED) Additional Instructions: Please drink 2-3 L of water a day for the next 3 days. Please eat foods with plenty of fiber. Please fill the prescriptions and take them as directed. If y ou are unable to have a bowel movement in the next 3 days, have worsening pain, high fevers, please return to emergency room Prescriptions: New polyethylene glycol 3350 [Miralax] 17 gram powder in packet 17 g PO BID Qty: 100 0RF bisacodyl [Dulcolax (bisacodyl)] 5 mg tablet,delayed release (DR/EC) 10 mg PO BEDTIME 2 Days Qty: 4 0RF No Action cephalexin 500 mg capsule 500 mg PO Q12H Qty: 10 0RF sulfamethoxazole-trimethoprim [Bactrim DS] 800-160 mg tablet 1 tab PO Q12H Qty: 14 0RF Interventions: ED Discharge Assessment Last Done: 01/03/22 13:55 Discharge Date/Time: 01/03/22 13:56
[2022-01-03 09:45] VITALS: BP 110/73; PULSE 80; RESP 15; TEMP 36.6; O2SAT 96
[2022-01-03 10:37] LABS: UPreg QC Valid YES; Urine Pregnancy NEGATIVE (NEGATIVE)
[2022-01-03] MEDS: Morphine Sulfate 4 MG/ML CARTRIDGE IVPUSH ×2 (10:39→12:30)
[2022-01-03] MEDS: ondansetron HCL 4 MG/2 ML VIAL IVPUSH (10:39)
[2022-01-03] MEDS: 0.9 % Sodium Chloride 1,000 ML 999 ML IV (10:39)
[2022-01-03 10:40] LABS: MANUAL DIFF FLAG NO
[2022-01-03 10:45] LABS: Basophils Absolute Auto 0.1 X10*3/uL (0.0-0.2); Basophils Percent Auto 0.9 % (0-2); Eosinophils Absolute Auto 0.1 X10*3/uL (0.0-0.4); Eosinophils Percent Auto 1.3 % (0-4); Hemoglobin 13.4 g/dl (12.0-16.0); Imm Gran Abs Auto 0.07 X10*3/uL (0.00-0.03); Lymphocytes Absolute Auto 2.4 X10*3/uL (1.2-4.9); Lymphocytes Percent Auto 35.5 % (20-40); Mean Corpuscular HGB Conc 33.5 g/dl (31.0-35.0); Mean Corpuscular Hemoglobin 29.8 pg (27.0-33.0); Mean Corpuscular Volume 89.1 fL (80.0-98.0); Mean Platelet Volume 9.7 fL (9.4-12.3); Monocytes Absolute Auto 0.4 X10*3/uL (0.1-1.2); Monocytes Percent Auto 6.2 % (2-11); Neutrophils Absolute Auto 3.8 x10*3/uL (2.0-8.3); Neutrophils Percent Auto 55.1 % (45-73); Platelet Count 280 X10*3/uL (160-400); Red Blood Count 4.49 X10*6/uL (4.20-5.50); Red Cell Distribution Width 13.1 % (11.0-16.0); White Blood Count 6.8 X10*3/uL (4.8-10.8)
[2022-01-03 10:48] LABS: Appearance Urine CLOUDY; Color Urine RED; Glucose Urine UA NEG (NEG); Leukocyte Esterase Urine NEG (NEG); Nitrite Urine NEG (NEG); UACC Culture Trigger NO; Urine Blood 3+ (NEG); Urine Ketones 5 MG/DL (NEG); Urine Protein 2+ MG/DL (NEG-TRACE)
[2022-01-03 10:56] LABS: Alanine Aminotransferase 17 U/L (0-31); Albumin Level 4.2 g/dL (3.5-5.0); Alkaline Phosphatase 60 U/L (39-117); Anion Gap 12 (12-20); Aspartate Amino Transferase 15 U/L (5-31); Bilirubin Direct < 0.2 mg/dL (0.0-0.5); Bilirubin Total 0.2 mg/dL (0.0-1.0); Blood Urea Nitrogen 15 mg/dL (9-16); Calcium 9.3 mg/dL (8.4-10.2); Carbon Dioxide 24 mmol/L (22-29); Chloride 106 mmol/L (96-108); Creatinine Clr Calc Pharmacy 118.9; Estimated Glomerular Filt Rate > 60; Glucose Random 99 mg/dL (60-115); Lipase 17 U/L (8-78); Potassium 4.5 mmol/L (3.3-5.1); Sodium 137 mmol/L (135-145); Total Protein 6.8 g/dL (6.5-8.0)
[2022-01-03 11:08] LABS: Renal Epithelial Cells Urine 3+ /LPF; Squamous Epithelial Cell Urine 3+ /LPF
[2022-01-03] MEDS: iohexoL 350 MG/ML 100 ML INFUS..BTL IV (11:25)
--- NOTE | 2022-01-03 11:49 | PC.NURSE ---
pt reports no improvement after the morphine, pain more then 10 at this time, provider aware
[2022-01-03 12:29] VITALS: BP 125/77; PULSE 81; RESP 18; O2SAT 97
--- NOTE | 2022-01-03 13:54 | PC.NURSE ---
pt reports feeling much better, denies pain at this time
== END 2022-01-03 13:56 | disposition home or self-care (01) ==
PROVIDERS: Physician Assistant; Emergency Provider Emergency Medicine; PCP Internal Medicine
DX: R10.30 Lower abdominal pain, unspecified (principal); K59.00 Constipation, unspecified; F12.90 Cannabis use, unspecified, uncomplicated
CPT/HCPCS: 36415; 74177; 80048; 80076; 81001; 81025; 83690; 85025; 96361; 96374; 96375; 96376; 99284; J2270; J2405; Q9967

== ENCOUNTER 2022-01-06 11:33 | Emergency (ER) | payer MEDICARE, MEDICAID, SELFPAY ==
--- NOTE | ~2022-01-06 | XR_ITS ---
EXAMINATION: XR ABDOMEN KUB CLINICAL INDICATION: Constipation. Rule out obstruction or free air COMPARISON: Previous CT of the abdomen and pelvis 01/03/2022 TECHNIQUE: AP view of the abdomen. FINDINGS: There is stool throughout the colon suggestive of constipation. There are no dilated loops of bowel to suggest obstruction. There is no evidence of free air. No calcifications are seen. Bony structures are unremarkable. XR/XR KUB IMPRESSION: Constipation. No evidence of obstruction or free air.
[2022-01-06 11:38] VITALS: BP 136/96; PULSE 100; RESP 18; TEMP 36.7; O2SAT 98; BMI 38.0
--- NOTE | 2022-01-06 12:33 | ED.GENADULT ---
HPI - General Adult General Chief complaint: General Medical Stated complaint: abd pain no bowel movements vomiting Time Seen by Provider: 01/06/22 12:19 Source: patient Mode of arrival: ambulatory Limitations: no limitations History of Present Illness HPI narrative: 36-year-old female who is here 3 days ago for constipation has not had a bowel movement for the last 5 days. Patient is worsening right lower quadrant pain despite taking MiraLax and Dulcolax. Patient states she started vomiting yesterday and she cannot eat or drink due to the pain. States her pain is 10/10 in her right lower quadrant and is worsening. She is passing gas. No chest pain, shortness of breath, dizziness, lightheadedness, upper respiratory symptoms, focal neurological symptoms, headache, visual changes. Related Data Previous Rx's Medication Instructions Recorded cephalexin 500 mg capsule 500 mg PO Q12H #10 cap 09/06/20 sulfamethoxazole 800 1 tab PO Q12H #14 tab 09/10/20 mg-trimethoprim 160 mg tablet (Bactrim DS) bisacodyl 5 mg tablet,delayed 10 mg PO BEDTIME 2 Days #4 tab 01/03/22 release (Dulcolax (bisacodyl)) polyethylene glycol 3350 17 gram 17 g PO BID #100 ea 01/03/22 oral powder packet (Miralax) Allergies Allergy/AdvReac Type Severity Reaction Status Date / Time acetaminophen [From TYLENOL] Allergy Unknown stomach Verified 01/03/22 10:11 ulcers gluten [GLUTEN] Allergy Unknown UNKNOWN Verified 01/03/22 10:11 latex [LATEX] Allergy Unknown rash/hives Verified 01/03/22 10:11 lithium [LITHIUM] Allergy Unknown hives Verified 01/03/22 10:11 phenobarbital Allergy Unknown UNKNOWN Verified 01/03/22 10:11 risperidone [From RISPERDAL] Allergy Unknown hives Verified 01/03/22 10:11 shellfish derived Allergy Unknown ANAPHYLAXIS Verified 01/03/22 10:11 [SHELLFISH DERIVED] ketorolac [From Toradol] Allergy Hives Verified 01/06/22 13:22 Review of Systems Constitutional: Constitutional: Denies body ache(s), Denies chills, Denies fatigue, Denies fever(s), Denies headache(s), Denies malaise and Denies weakness Eyes: Eyes: Denies diplopia ENT: Denies vertigo, Denies dizziness, Denies otalgia, Denies headache(s), Denies mouth pain, Denies post nasal drip, Denies sinus pain, Denies sinus pressure, Denies sore throat and Denies throat swelling Cardiovascular: Cardiovascular: Denies chest pain, Denies syncope, Denies leg edema, Denies lightheadedness, Denies Loss of Consciousness, Denies palpitations and Denies dyspnea Respiratory: Respiratory: Denies chest congestion, Denies cough and Denies dyspnea Gastrointestinal: Gastrointestinal: Reports abdominal pain, Denies hematochezia, Reports constipation, Denies diarrhea, Reports nausea and Reports vomiting Musculoskeletal: Musculoskeletal: Reports no additional musculoskeletal complaints Neurologic: Denies confusion, Denies vertigo, Denies dizziness, Denies syncope, Denies headache(s) and Denies weakness Psychiatric: Psychiatric: Denies anxiety, Denies confusion and Denies depression Endocrine: Endocrine: Denies fatigue and Denies palpitations Allergic/Immunologic: Allergic/Immunologic: Denies throat swelling PMFSH Past Medical History Medical History Asthma Celiac disease Gastritis GERD (gastroesophageal reflux disease) Hypothyroid Social History Social History Alcohol intake: never Patient Tobacco Use Status: Former Tobacco user Use of substances other than those prescribed or required for medical reasons: No Substance Use Type: Marijuana Advance Directives: No Advance Directives Information Provided: No Physical Exam ED Vital Signs: Vital Signs - 24 hr 01/06/22 11:38 01/06/22 13:40 01/06/22 16:09 Temperature 98.0 F 98.7 F 98.4 F Pulse Rate 100 83 81 Respiratory Rate 18 18 16 Blood Pressure 136/96 H 127/86 122/69 Pulse Oximetry 98 97 97 01/06/22 17:08 Temperature Pulse Rate 95 Respiratory Rate 18 Blood Pressure 119/74 Pulse Oximetry 95 BMI result Body Mass Index 38.0 Const General: alert and awake; No confusion Nutritional Appearance: obese Orientation/consciousness: patient oriented x3 and No confusion Limitations: no limitations HENMT Head: Yes normal to inspection, Yes normocephalic and Yes atraumatic Ears: hearing grossly normal bilaterally General nose exam: Normal external nose present Face and sinus: Yes normal facial exam Mouth: Normal oral and palatal mucosa present Throat: Yes posterior oropharynx normal Eyes Pupils: Equal, round and reactive pupils present EOM: EOMs intact bilaterally Neck Neck: Yes normal visual inspection, Yes full ROM, Yes no lymphadenopathy, Yes no meningeal signs, Yes trachea midline and Yes supple Resp Effort & Inspection: normal respiratory effort and able to speak in complete sentences Auscultation: clear to auscultation bilaterally, no crackles, no rales, no rhonchi and no wheezes Cardio Rate: regular rate Rhythm: regular rhythm Heart sounds: S1 normal heart sound present and S2 normal heart sound present GI Inspection: Yes Abdominal panniculus present, Yes obesity and Yes striae Palpation (GI): Soft to palpation, not firm, Tenderness to palpation present (GI) in the RLQ; Negative for with no rebound tenderness, no guarding and not rigid Percussion: Yes normal to percussion Auscultation: normal bowel sounds General: Yes no CVA tenderness Back/Spine/Pelvis Back: no CVA tenderness Skin General skin exam: no rashes or lesions noted Neuro Other: Pressured speech, appears anxious General: patient oriented x3, no meningeal signs and No confusion Cranial nerves: Yes Equal, round and reactive pupils present Extrem General: Yes normal to inspection and Yes full ROM Psych Appearance: grossly normal Mental Status: mental status grossly normal Speech and movement: Normal speech and movement present Affect: Animated affect present Attitude: cooperative Course Course Course Narrative: 36-year-old female with past medical history of asthma, celiac disease, gastritis, GERD, and hypothyroidism, presents for constipation for last 5 days. Patient has been vomiting, and is having worsening pain. On exam, patient has stable vitals, is tender to palpate right lower quadrant. Patient was seen here 01/03/22, had a CT scan abdomen pelvis significant for constipation. Labs are unremarkable. Labs and urine are normal here today Reevaluation(s) Reevaluation #1: KUB shows Constipation. No evidence of obstruction or free air. Will give magnesium citrate, if that does not work will give fleet enema Reevaluation #2: Mag citrate and Fleet enema did not get patient to stool. Give soapsuds enema, patient finally stoolsed Gave return precautions of worsening abdominal pain, fevers, nausea vomiting. Counseled patient to take MiraLax twice a day, and to take the Ducolax. Patient does have IBS, will follow up with her GI doctor Medical Decision Making Lab Data Result diagrams: 01/06/22 13:52 01/06/22 13:52 Labs: Lab Results 01/06/22 01/06/22 01/06/22 Range/Units 12:52 12:52 12:52 WBC (4.8-10.8) X10*3/uL RBC (4.20-5.50) X10*6/uL Hgb (12.0-16.0) g/dl Hct (37.0-47.0) % MCV (80.0-98.0) fL MCH (27.0-33.0) pg MCHC (31.0-35.0) g/dl RDW (11.0-16.0) % Plt Count (160-400) X10*3/uL MPV (9.4-12.3) fL Immature Gran % (Auto) (0.0-0.4) % Neut % (Auto) (45-73) % Lymph % (Auto) (20-40) % [place] % (Auto) (2-11) % Eos % (Auto) (0-4) % Baso % (Auto) (0-2) % Lymph # (Auto) (1.2-4.9) X10*3/uL [place] # (Auto) (0.1-1.2) X10*3/uL Eos # (Auto) (0.0-0.4) X10*3/uL Baso # (Auto) (0.0-0.2) X10*3/uL Abs Immat Gran (auto) (0.00-0.03) X10*3/uL Absolute Neuts (auto) (2.0-8.3) x10*3/uL Absolute Nucleated RBC (0.0-0.012) X10*3/uL Nucleated RBC % (auto) (0.0-0.2) /100WBC Sodium (135-145) mmol/L Potassium (3.3-5.1) mmol/L Chloride (96-108) mmol/L Carbon Dioxide (22-29) mmol/L Anion Gap (12-20) BUN (9-16) mg/dL Creatinine (0.5-1.4) mg/dL Estim Creat Clear Calc Estimated GFR Random Glucose (60-115) mg/dL Calcium (8.4-10.2) mg/dL Total Bilirubin (0.0-1.0) mg/dL AST (5-31) U/L ALT (0-31) U/L Alkaline Phosphatase (39-117) U/L Total Protein (6.5-8.0) g/dL Albumin (3.5-5.0) g/dL Urine Color YELLOW Urine Appearance HAZY Urine pH 7.0 (5.0-8.0) Ur Specific [place] 1.010 (1.005-1.025) Urine Protein NEG (NEG-TRACE) MG/DL Urine Glucose (UA) NEG (NEG) MG/DL Urine Ketones NEG (NEG) MG/DL Urine Blood NEG (NEG) Urine Nitrite NEG (NEG) Ur Leukocyte Esterase NEG (NEG) Urine Test NEGATIVE (NEGATIVE) Stool Occult Blood NEGATIVE (NEGATIVE) 01/06/22 01/06/22 Range/Units 13:52 13:52 WBC 7.9 (4.8-10.8) X10*3/uL RBC 4.75 (4.20-5.50) X10*6/uL Hgb 14.0 (12.0-16.0) g/dl Hct 42.1 (37.0-47.0) % MCV 88.6 (80.0-98.0) fL MCH 29.5 (27.0-33.0) pg MCHC 33.3 (31.0-35.0) g/dl RDW 12.8 (11.0-16.0) % Plt Count 298 (160-400) X10*3/uL MPV 9.4 (9.4-12.3) fL Immature Gran % (Auto) 0.8 H (0.0-0.4) % Neut % (Auto) 57.8 (45-73) % Lymph % (Auto) 33.6 (20-40) % [place] % (Auto) 6.1 (2-11) % Eos % (Auto) 0.9 (0-4) % Baso % (Auto) 0.8 (0-2) % Lymph # (Auto) 2.7 (1.2-4.9) X10*3/uL [place] # (Auto) 0.5 (0.1-1.2) X10*3/uL Eos # (Auto) 0.1 (0.0-0.4) X10*3/uL Baso # (Auto) 0.1 (0.0-0.2) X10*3/uL Abs Immat Gran (auto) 0.06 H (0.00-0.03) X10*3/uL Absolute Neuts (auto) 4.6 (2.0-8.3) x10*3/uL Absolute Nucleated RBC 0.000 (0.0-0.012) X10*3/uL Nucleated RBC % (auto) 0.0 (0.0-0.2) /100WBC Sodium 137 (135-145) mmol/L Potassium 4.6 (3.3-5.1) mmol/L Chloride 104 (96-108) mmol/L Carbon Dioxide 23 (22-29) mmol/L Anion Gap 15 (12-20) BUN 10 (9-16) mg/dL Creatinine 0.77 (0.5-1.4) mg/dL Estim Creat Clear Calc 110.2 Estimated GFR > 60 Random Glucose 89 (60-115) mg/dL Calcium 9.9 D (8.4-10.2) mg/dL Total Bilirubin 0.4 (0.0-1.0) mg/dL AST 18 (5-31) U/L ALT 20 (0-31) U/L Alkaline Phosphatase 61 (39-117) U/L Total Protein 7.1 (6.5-8.0) g/dL Albumin 4.2 (3.5-5.0) g/dL Urine Color Urine Appearance Urine pH (5.0-8.0) Ur Specific [place] (1.005-1.025) Urine Protein (NEG-TRACE) MG/DL Urine Glucose (UA) (NEG) MG/DL Urine Ketones (NEG) MG/DL Urine Blood (NEG) Urine Nitrite (NEG) Ur Leukocyte Esterase (NEG) Urine Test (NEGATIVE) Stool Occult Blood (NEGATIVE) Discharge Plan Discharge Clinical Impression: Constipation Patient Disposition: Home, Self-Care Instructions: Irritable Bowel Syndrome (ED), Constipation (ED), High Fiber Diet (ED) Additional Instructions: Please call your GI doctor on Friday morning for follow-up appointment from these emergency room visits. Please continue your this a caudal, you may take 2 tablets twice a day. In addition takes the MiraLax twice a day. Drink plenty of water, eat a high-fiber diet. Return to be seen if you have worsening fevers, worsening abdominal pain, if you cannot eat or drink. Ibuprofen for pain. Prescriptions: No Action cephalexin 500 mg capsule 500 mg PO Q12H Qty: 10 0RF sulfamethoxazole-trimethoprim [Bactrim DS] 800-160 mg tablet 1 tab PO Q12H Qty: 14 0RF polyethylene glycol 3350 [Miralax] 17 gram powder in packet 17 g PO BID Qty: 100 0RF bisacodyl [Dulcolax (bisacodyl)] 5 mg tablet,delayed release (DR/EC) 10 mg PO BEDTIME 2 Days Qty: 4 0RF
[2022-01-06 13:13] LABS: Appearance Urine HAZY; Color Urine YELLOW; Glucose Urine UA NEG (NEG); Leukocyte Esterase Urine NEG (NEG); Nitrite Urine NEG (NEG); Urine Blood NEG (NEG); Urine Ketones NEG (NEG); Urine Protein NEG (NEG-TRACE)
[2022-01-06 13:14] LABS: OBS Int Ctl Valid YES; OBS1 NEGATIVE (NEGATIVE)
[2022-01-06 13:15] LABS: UPreg QC Valid YES; Urine Pregnancy NEGATIVE (NEGATIVE)
[2022-01-06 13:40] VITALS: BP 127/86; PULSE 83; RESP 18; TEMP 37.1; O2SAT 97
[2022-01-06 13:59] LABS: MANUAL DIFF FLAG NO
[2022-01-06 14:01] LABS: Basophils Absolute Auto 0.1 X10*3/uL (0.0-0.2); Basophils Percent Auto 0.8 % (0-2); Eosinophils Absolute Auto 0.1 X10*3/uL (0.0-0.4); Eosinophils Percent Auto 0.9 % (0-4); Hematocrit 42.1 % (37.0-47.0); Imm Gran Abs Auto 0.06 X10*3/uL (0.00-0.03); Imm Gran Pct Auto 0.8 % (0.0-0.4); Lymphocytes Absolute Auto 2.7 X10*3/uL (1.2-4.9); Lymphocytes Percent Auto 33.6 % (20-40); Mean Corpuscular HGB Conc 33.3 g/dl (31.0-35.0); Mean Corpuscular Hemoglobin 29.5 pg (27.0-33.0); Mean Corpuscular Volume 88.6 fL (80.0-98.0); Mean Platelet Volume 9.4 fL (9.4-12.3); Monocytes Absolute Auto 0.5 X10*3/uL (0.1-1.2); Monocytes Percent Auto 6.1 % (2-11); Neutrophils Absolute Auto 4.6 x10*3/uL (2.0-8.3); Neutrophils Percent Auto 57.8 % (45-73); Platelet Count 298 X10*3/uL (160-400); Red Blood Count 4.75 X10*6/uL (4.20-5.50); Red Cell Distribution Width 12.8 % (11.0-16.0); White Blood Count 7.9 X10*3/uL (4.8-10.8)
[2022-01-06] MEDS: ondansetron HCL 4 MG/2 ML VIAL IVPUSH (14:02)
[2022-01-06] MEDS: 0.9 % Sodium Chloride 1,000 ML 999 ML IV (14:02)
[2022-01-06] MEDS: Morphine Sulfate 4 MG/ML CARTRIDGE IVPUSH ×2 (14:04→17:11)
[2022-01-06] MEDS: Docusate Sodium 100 MG CAPSULE 200 MG PO (14:05)
[2022-01-06 14:15] LABS: Alanine Aminotransferase 20 U/L (0-31); Albumin Level 4.2 g/dL (3.5-5.0); Alkaline Phosphatase 61 U/L (39-117); Anion Gap 15 (12-20); Aspartate Amino Transferase 18 U/L (5-31); Bilirubin Total 0.4 mg/dL (0.0-1.0); Blood Urea Nitrogen 10 mg/dL (9-16); Calcium 9.9 mg/dL (8.4-10.2); Carbon Dioxide 23 mmol/L (22-29); Chloride 104 mmol/L (96-108); Creatinine Clr Calc Pharmacy 110.2; Estimated Glomerular Filt Rate > 60; Glucose Random 89 mg/dL (60-115); Potassium 4.6 mmol/L (3.3-5.1); Sodium 137 mmol/L (135-145); Total Protein 7.1 g/dL (6.5-8.0)
[2022-01-06] MEDS: Magnesium Citrate 300 ML SOLUTION PO (14:28)
[2022-01-06] MEDS: Sodium Phosphate,Mono-Dibasic 133 ML ENEMA PR (15:43)
[2022-01-06 16:09] VITALS: BP 122/69; PULSE 81; RESP 16; TEMP 36.9; O2SAT 97
[2022-01-06 17:08] VITALS: BP 119/74; PULSE 95; RESP 18; O2SAT 95
== END 2022-01-06 17:56 | disposition home or self-care (01) ==
PROVIDERS: Physician Assistant; Emergency Provider Emergency Medicine; PCP Internal Medicine
DX: R10.9 Unspecified abdominal pain (principal); K59.00 Constipation, unspecified; K21.9 Gastro-esophageal reflux disease without esophagitis; Z79.899 Other long term (current) drug therapy
CPT/HCPCS: 36415; 74018; 80053; 81003; 81025; 82272; 85025; 96374; 96376; 99284; J2270; J2405

== ENCOUNTER 2023-07-14 19:46 | Emergency (ER) | payer MEDICARE, MEDICAID, SELFPAY ==
--- NOTE | ~2023-07-14 | XR_ITS ---
EXAMINATION: XR ABDOMEN KUB CLINICAL INDICATION: Abdominal pain history of constipation COMPARISON: KUB radiograph from 01/06/2022 TECHNIQUE: AP view of the abdomen. FINDINGS: No dilated loops of bowel to suggest obstruction. Mild to moderate fecal loading of the colon greatest in the ascending, transverse, and proximal descending colon. Prominent amount of air noted in the stomach. Levocurvature of the mid lumbar spine. Soft tissues are unremarkable. XR/XR KUB IMPRESSION: 1. No dilated loops of bowel to suggest obstruction. 2. Mild to moderate fecal loading of the colon greatest in the ascending, transverse, and proximal descending colon. 3. Prominent amount of air noted in the stomach.
[2023-07-14 19:49] VITALS: BP 164/92; PULSE 85; O2SAT 98
[2023-07-14 20:12] LABS: MANUAL DIFF FLAG NO
[2023-07-14 20:20] VITALS: BP 140/86; BP 164/92; PULSE 85; PULSE 95; RESP 18; TEMP 36.6; O2SAT 97; O2SAT 98; BMI 35.4
[2023-07-14 20:26] VITALS: BP 140/86; PULSE 95; RESP 18; TEMP 36.6; O2SAT 97
[2023-07-14 20:26] LABS: UPreg QC Valid YES; Urine Pregnancy NEGATIVE (NEGATIVE)
[2023-07-14 20:27] LABS: Appearance Urine Clear; Color Urine Yellow; Glucose Urine UA Negative (Negative); Leukocyte Esterase Urine Small (1+) (Negative); Nitrite Urine Negative (Negative); Specific Gravity - Urine 1.025 (1.005-1.025); UMIC TRIGGER UACC YES; Urine Blood Negative (Negative); Urine Ketones Negative (Negative); Urine Protein Negative (Neg-Trace)
[2023-07-14 20:27] LABS: Basophils Absolute Auto 0.1 X10*3/uL (0.0-0.2); Basophils Percent Auto 1.1 % (0-2); Eosinophils Absolute Auto 0.2 X10*3/uL (0.0-0.4); Eosinophils Percent Auto 2.5 % (0-4); Hematocrit 38.2 % (37.0-47.0); Hemoglobin 12.9 g/dl (12.0-16.0); Imm Gran Abs Auto 0.04 X10*3/uL (0.00-0.03); Imm Gran Pct Auto 0.5 % (0.0-0.4); Lymphocytes Absolute Auto 2.5 X10*3/uL (1.2-4.9); Lymphocytes Percent Auto 29.7 % (20-40); Mean Corpuscular HGB Conc 33.8 g/dl (31.0-35.0); Mean Corpuscular Hemoglobin 30.6 pg (27.0-33.0); Mean Corpuscular Volume 90.7 fL (80.0-98.0); Mean Platelet Volume 9.9 fL (9.4-12.3); Monocytes Absolute Auto 0.5 X10*3/uL (0.1-1.2); Monocytes Percent Auto 6.3 % (2-11); Neutrophils Absolute Auto 4.9 x10*3/uL (2.0-8.3); Neutrophils Percent Auto 59.9 % (45-73); Platelet Count 323 X10*3/uL (160-400); Red Blood Count 4.21 X10*6/uL (4.20-5.50); Red Cell Distribution Width 13.1 % (11.0-16.0); White Blood Count 8.2 X10*3/uL (4.8-10.8)
[2023-07-14 20:30] LABS: Alanine Aminotransferase 13 U/L (0-31); Albumin Level 4.3 g/dL (3.5-5.0); Alkaline Phosphatase 74 U/L (39-117); Anion Gap 13 (12-20); Aspartate Amino Transferase 14 U/L (5-31); Bilirubin Total 0.2 mg/dL (0.0-1.0); Blood Urea Nitrogen 17 mg/dL (9-16); Calcium 10.7 mg/dL (8.4-10.2); Carbon Dioxide 23 mmol/L (22-29); Chloride 106 mmol/L (96-108); Creatinine Clr Calc Pharmacy 109.4; Estimated Glomerular Filt Rate > 60; Glucose Random 103 mg/dL (60-115); Potassium 3.8 mmol/L (3.3-5.1); Sodium 138 mmol/L (135-145); Total Protein 7.8 g/dL (6.5-8.0)
[2023-07-14 20:31] LABS: Bacteria Urine 1+ (None Seen); Hyaline Casts Urine 0-2 /LPF (0-2); RBC Urine 0-2 /HPF (0-2); UACC Culture Trigger YES
--- NOTE | 2023-07-14 21:12 | ED_ITS ---
HPI - Abdominal Pain General Chief Complaint: Abdominal Pain Stated Complaint: abd pain w/ nausea Time Seen by Provider: 07/14/23 19:59 Source: patient Mode of arrival: EMS History of Present Illness HPI narrative: 38-year-old female with a history of abdominal discomfort presents via EMS for onset of left-sided abdominal pain associated with nausea vomiting but denies any fever chills or dysuria. Related Data Previous Rx's Medication Instructions Recorded cephalexin 500 mg capsule 500 mg PO Q12H #10 caps 09/06/20 sulfamethoxazole 800 1 tab PO Q12H #14 tabs 09/10/20 mg-trimethoprim 160 mg tablet (Bactrim DS) bisacodyl 5 mg tablet,delayed 10 mg PO BEDTIME 2 days #4 tabs 01/03/22 release (Dulcolax (bisacodyl)) polyethylene glycol 3350 17 gram 17 g PO BID #100 ea 01/03/22 oral powder packet (Miralax) nitrofurantoin 100 mg PO Q12H 5 days #10 caps 07/14/23 monohydrate/macrocrystals 100 mg capsule (Macrobid) ondansetron HCl 4 mg tablet 4 mg PO Q8H PRN nausea and 07/14/23 vomiting 4 days #7 tabs Allergies Allergy/AdvReac Type Severity Reaction Status Date / Time acetaminophen [From TYLENOL] Allergy Unknown stomach Verified 01/03/22 10:11 ulcers gluten [GLUTEN] Allergy Unknown UNKNOWN Verified 01/03/22 10:11 latex [LATEX] Allergy Unknown rash/hives Verified 01/03/22 10:11 lithium [LITHIUM] Allergy Unknown hives Verified 01/03/22 10:11 phenobarbital Allergy Unknown UNKNOWN Verified 01/03/22 10:11 risperidone [From RISPERDAL] Allergy Unknown hives Verified 01/03/22 10:11 shellfish derived Allergy Unknown ANAPHYLAXIS Verified 01/03/22 10:11 [SHELLFISH DERIVED] ketorolac [From Toradol] Allergy Hives Verified 01/06/22 13:22 Review of Systems Review of Systems Pertinent positives and negatives as stated in HPI PMFSH Past Medical History Source: nursing notes reviewed Medical History Asthma Celiac disease Gastritis GERD (gastroesophageal reflux disease) Hypothyroid Social History Social History Alcohol intake: former Patient Tobacco Use Status: Former Tobacco user Smoked in Last 30 Days: Yes Use of substances other than those prescribed or required for medical reasons: No Substance Use Type: Marijuana Advance Directives: No Advance Directives Information Provided: Yes Physical Exam ED Vital Signs: Vital Signs - 24 hr 07/14/23 20:20 07/14/23 20:26 Temperature 97.9 F 97.9 F Pulse Rate 95 95 Respiratory Rate 18 18 Blood Pressure 140/86 H 140/86 H Pulse Oximetry 97 97 Oxygen Delivery Method Room Air Room Air BMI result Body Mass Index 35.4 VITAL SIGNS: Reviewed. GENERAL: Well developed, well nourished, in no acute distress. HEAD: Normocephalic/atraumatic EYES: PERRLA, EOMI EARS: Ext canals without abnormality NOSE: Nares patent bilateral OROPHARYNX: no oral lesions noted, posterior pharynx clear NECK: Supple, no adenopathy LUNGS: Normal breath sounds. No adventitious sounds or accessory muscle use. SpO2<97> CARDIOVASCULAR: Regular rate and rhythm without noted murmurs ABDOMEN: Soft, abdominal discomfort on palpation over epigastrium and left upper quadrant, non-distended with bowel sounds. MUSCULOSKELETAL: No tenderness, deformities, or effusions noted on gross inspection. EXTREMITIES: No cyanosis, clubbing or edema. SKIN: Inspection of the skin reveals no rashes NEUROLOGIC: Alert and oriented x 4. Strength and sensation to light touch were grossly intact x 4. Medical Decision Making Medical Decision Making MDM Narrative: 38-year-old female, have reviewed her chart, she has history and clinical presentation that I suspect is most consistent with constipation, patient also has a history of gastritis. There are no history or clinical symptoms to suggest acute appendicitis, cholecystitis or obstruction. I reviewed all investigations and hematologic indices are grossly within normal limits without leukocytosis or left shift and no anemia or thrombocytopenia. Chemistry indices are grossly within normal limits without HORTENCIA, electrolyte or liver enzyme abnormalities. Urinalysis is positive for UTI and patient will be treated with Macrobid with 1st dose given here, I also suspect that patient is significantly constipated after review of the KUB, urine is negative and my interpretation the KUB is otherwise in agreement with radiology's impression. My interpretation is that patient has a UTI, significant constipation the latter of which will be a recommendation for [id number] magnesium citrate (we do not have any in this institution). I will then recommend that the patient continue to take MiraLax at least daily until she begins having daily soft bowel movements. Differential Diagnosis Differential Diagnoses: The differential diagnosis associated with the presentation includes Please see the discussion above Admission/Observation Consideration of admission/observation: Escalation of care including admission/observation considered Please see the discussion above Lab Data MDM Lab Attestation statement: I reviewed the patient's lab results. Please see the discussion above 07/14/23 20:07 07/14/23 20:07 Labs: Lab Results 07/14/23 07/14/23 07/14/23 Range/Units 20:07 20:07 20:12 WBC 8.2 (4.8-10.8) X10*3/uL RBC 4.21 (4.20-5.50) X10*6/uL Hgb 12.9 (12.0-16.0) g/dl Hct 38.2 (37.0-47.0) % MCV 90.7 (80.0-98.0) fL MCH 30.6 (27.0-33.0) pg MCHC 33.8 (31.0-35.0) g/dl RDW 13.1 (11.0-16.0) % Plt Count 323 (160-400) X10*3/uL MPV 9.9 (9.4-12.3) fL Immature Gran % (Auto) 0.5 H (0.0-0.4) % Neut % (Auto) 59.9 (45-73) % Lymph % (Auto) 29.7 (20-40) % [place] % (Auto) 6.3 (2-11) % Eos % (Auto) 2.5 (0-4) % Baso % (Auto) 1.1 (0-2) % Lymph # (Auto) 2.5 (1.2-4.9) X10*3/uL [place] # (Auto) 0.5 (0.1-1.2) X10*3/uL Eos # (Auto) 0.2 (0.0-0.4) X10*3/uL Baso # (Auto) 0.1 (0.0-0.2) X10*3/uL Abs Immat Gran (auto) 0.04 H (0.00-0.03) X10*3/uL Absolute Neuts (auto) 4.9 (2.0-8.3) x10*3/uL Absolute Nucleated RBC 0.000 (0.0-0.012) X10*3/uL Nucleated RBC % (auto) 0.0 (0.0-0.2) /100WBC Sodium 138 (135-145) mmol/L Potassium 3.8 (3.3-5.1) mmol/L Chloride 106 (96-108) mmol/L Carbon Dioxide 23 (22-29) mmol/L Anion Gap 13 (12-20) BUN 17 H (9-16) mg/dL Creatinine 0.76 (0.5-1.4) mg/dL Estim Creat Clear Calc 109.4 Estimated GFR > 60 Random Glucose 103 (60-115) mg/dL Calcium 10.7 H D (8.4-10.2) mg/dL Total Bilirubin 0.2 (0.0-1.0) mg/dL AST 14 (5-31) U/L ALT 13 (0-31) U/L Alkaline Phosphatase 74 (39-117) U/L Total Protein 7.8 (6.5-8.0) g/dL Albumin 4.3 (3.5-5.0) g/dL Urine Color Yellow Urine Appearance Clear Urine pH 6.0 (5.0-9.0) Ur Specific [place] 1.025 (1.005-1.025) Urine Protein Negative (Neg-Trace) mg/dL Urine Glucose (UA) Negative (Negative) mg/dL Urine Ketones Negative (Negative) mg/dL Urine Blood Negative (Negative) Urine Nitrite Negative (Negative) Ur Leukocyte Esterase Small (1+) H (Negative) Urine RBC 0-2 (0-2) /HPF Urine WBC 6-10 H (0-5) /HPF Ur Squamous Epith Cells 3-5 (0-2) /HPF Urine Bacteria 1+ (None Seen) Hyaline Casts 0-2 (0-2) /LPF Urine Test (NEGATIVE) 07/14/23 Range/Units 20:12 WBC (4.8-10.8) X10*3/uL RBC (4.20-5.50) X10*6/uL Hgb (12.0-16.0) g/dl Hct (37.0-47.0) % MCV (80.0-98.0) fL MCH (27.0-33.0) pg MCHC (31.0-35.0) g/dl RDW (11.0-16.0) % Plt Count (160-400) X10*3/uL MPV (9.4-12.3) fL Immature Gran % (Auto) (0.0-0.4) % Neut % (Auto) (45-73) % Lymph % (Auto) (20-40) % [place] % (Auto) (2-11) % Eos % (Auto) (0-4) % Baso % (Auto) (0-2) % Lymph # (Auto) (1.2-4.9) X10*3/uL [place] # (Auto) (0.1-1.2) X10*3/uL Eos # (Auto) (0.0-0.4) X10*3/uL Baso # (Auto) (0.0-0.2) X10*3/uL Abs Immat Gran (auto) (0.00-0.03) X10*3/uL Absolute Neuts (auto) (2.0-8.3) x10*3/uL Absolute Nucleated RBC (0.0-0.012) X10*3/uL Nucleated RBC % (auto) (0.0-0.2) /100WBC Sodium (135-145) mmol/L Potassium (3.3-5.1) mmol/L Chloride (96-108) mmol/L Carbon Dioxide (22-29) mmol/L Anion Gap (12-20) BUN (9-16) mg/dL Creatinine (0.5-1.4) mg/dL Estim Creat Clear Calc Estimated GFR Random Glucose (60-115) mg/dL Calcium (8.4-10.2) mg/dL Total Bilirubin (0.0-1.0) mg/dL AST (5-31) U/L ALT (0-31) U/L Alkaline Phosphatase (39-117) U/L Total Protein (6.5-8.0) g/dL Albumin (3.5-5.0) g/dL Urine Color Urine Appearance Urine pH (5.0-9.0) Ur Specific [place] (1.005-1.025) Urine Protein (Neg-Trace) mg/dL Urine Glucose (UA) (Negative) mg/dL Urine Ketones (Negative) mg/dL Urine Blood (Negative) Urine Nitrite (Negative) Ur Leukocyte Esterase (Negative) Urine RBC (0-2) /HPF Urine WBC (0-5) /HPF Ur Squamous Epith Cells (0-2) /HPF Urine Bacteria (None Seen) Hyaline Casts (0-2) /LPF Urine Test NEGATIVE (NEGATIVE) Radiology Impression Radiologist Impression: Please see the discussion above External Record Review External record reviewed: Outpatient record, Prior outpatient labs and Prior outpatient radiology Chronic Conditions Patient?s care impacted by: Other Constipation Discharge Plan Discharge Clinical Impression: Constipation, UTI (urinary tract infection) Patient Disposition: Home, Self-Care Instructions: Polyethylene Glycol 3350 (By mouth), Magnesium Citrate (By mouth), Constipation (ED), Urinary Tract Infection in Women (DC), High Fiber Diet (ED), Fleet Enema (ED) Additional Instructions: 1. I recommend that you go by the store in get 1 bottle of [id number] magnesium citrate and drink the entire thing. 2. Follow the above magnesium citrate within increase and water consumption and the use of [id number] MiraLax daily. 3. Please complete the entire course of antibiotics as prescribed for your urinary tract infection. 4. Please follow-up with primary care provider by calling the office in the morning. Return to the ER for any worsening symptoms. Prescriptions: New nitrofurantoin monohyd/m-cryst [Macrobid] 100 mg capsule 100 mg PO Q12H 5 Days Qty: 10 0RF Rx Instructions: must administer with a meal/food ondansetron HCl 4 mg tablet 4 mg PO Q8H PRN (Reason: nausea and vomiting) 4 Days Qty: 7 0RF No Action cephalexin 500 mg capsule 500 mg PO Q12H Qty: 10 0RF sulfamethoxazole-trimethoprim [Bactrim DS] 800-160 mg tablet 1 tab PO Q12H Qty: 14 0RF polyethylene glycol 3350 [Miralax] 17 gram powder in packet 17 g PO BID Qty: 100 0RF bisacodyl [Dulcolax (bisacodyl)] 5 mg tablet,delayed release (DR/EC) 10 mg PO BEDTIME 2 Days Qty: 4 0RF Referrals: Anushka Husain PA [Primary Care Provider] -
[2023-07-14] MEDS: Dicyclomine HCl 10 MG CAPSULE PO (21:25)
[2023-07-14] MEDS: Nitrofurantoin Monohyd/M-Cryst 100 MG CAPSULE PO (21:25)
[2023-07-14] MEDS: Ondansetron ODT 4 MG TAB.RAPDIS TRANSLINGU (21:25)
== END 2023-07-14 22:47 | disposition home or self-care (01) ==
PROVIDERS: Emergency Provider Student in an Organized Health Care Education/Training Program; PCP Physician Assistant Medical
DX: K59.00 Constipation, unspecified (principal); N39.0 Urinary tract infection, site not specified; R11.2 Nausea with vomiting, unspecified; Z79.899 Other long term (current) drug therapy; Z87.891 Personal history of nicotine dependence
CPT/HCPCS: 36415; 74018; 80053; 81001; 81025; 85025; 87086; 99283; 99284

== ENCOUNTER 2023-08-04 16:17 | Inpatient (IN) | payer MEDICARE, MEDICAID, SELFPAY ==
[2023-08-04 16:28] VITALS: BP 163/103; PULSE 95; RESP 18; TEMP 36.3; O2SAT 97; BMI 32.8
--- NOTE | 2023-08-04 16:28 | ED_ITS ---
HPI - Psych General Chief Complaint: ETOH/Substance Use Stated Complaint: crisis, SI Time Seen by Provider: 08/04/23 16:54 Source: patient Mode of arrival: ambulatory Limitations: no limitations History of Present Illness HPI Narrative: Patient comes to the emergency room looking for detox. Patient states that over the last days she has been drinking so much alcohol that she blacks out. Also using cocaine. Patient states that she has been taking Seroquel with intention of killing herself.. Patient states the last time she drank any alcohol was about 1/2 hour prior to coming into the emergency room. Patient denies abdominal pain, no chest pain, no URI or UTI symptoms Related Data Previous Rx's Medication Instructions Recorded cephalexin 500 mg capsule 500 mg PO Q12H #10 caps 09/06/20 sulfamethoxazole 800 1 tab PO Q12H #14 tabs 09/10/20 mg-trimethoprim 160 mg tablet (Bactrim DS) bisacodyl 5 mg tablet,delayed 10 mg (2 x 5 mg) PO BEDTIME 2 days 01/03/22 release (Dulcolax (bisacodyl)) #4 tabs polyethylene glycol 3350 17 gram 17 g PO BID #100 ea 01/03/22 oral powder packet (Miralax) nitrofurantoin 100 mg PO Q12H 5 days #10 caps 07/14/23 monohydrate/macrocrystals 100 mg capsule (Macrobid) ondansetron HCl 4 mg tablet 4 mg PO Q8H PRN nausea and 07/14/23 vomiting 4 days #7 tabs Allergies Allergy/AdvReac Type Severity Reaction Status Date / Time acetaminophen [From TYLENOL] Allergy Unknown stomach Verified 08/04/23 16:28 ulcers gluten [GLUTEN] Allergy Unknown UNKNOWN Verified 08/04/23 16:28 latex [LATEX] Allergy Unknown rash/hives Verified 08/04/23 16:28 lithium [LITHIUM] Allergy Unknown hives Verified 08/04/23 16:28 phenobarbital Allergy Unknown UNKNOWN Verified 08/04/23 16:28 risperidone [From RISPERDAL] Allergy Unknown hives Verified 08/04/23 16:28 shellfish derived Allergy Unknown ANAPHYLAXIS Verified 08/04/23 16:28 [SHELLFISH DERIVED] ketorolac [From Toradol] Allergy Hives Verified 08/04/23 16:28 Review of Systems 2 Review of Systems: Constitutional : No Weight loss, No Fever, No Chills, No Night Sweats, No Fatigue, No Malaise ENT/Mouth : No Hearing loss, No Ear Pain, No Nasal Congestion, No Sinus Pain, No Hoarseness, No sore throat, No Rhinorrhea, No Swallowing Difficulty Eyes: No Eye Pain, No Swelling, No Redness, No Foreign Body, No Discharge, No Vision Changes Cardiovascular : No Chest Pain, No SOB, No Dyspnea on Exertion, No Orthopnea, No Edema, No Palpitations Respiratory : No Cough, No Sputum, No Wheezing, No Smoke Exposure, No Dyspnea Gastrointestinal : No Nausea, No Vomiting, No Diarrhea, No Constipation, No abdominal Pain, No Hematochezia, No Melena Genitourinary : no irregular bleeding, No Dysuria, No Urinary Frequency, No Hematuria, No Urinary Incontinence, No Urgency, No Flank Pain, No Urinary Flow Changes, No Hesitancy Musculoskeletal : No joint pain, No Myalgias, No Joint Swelling Skin : No Skin Lesions, No rash Neuro : No Weakness, No Numbness, No Paresthesias, No Loss of Consciousness, No Dizziness, No Headache Psych : Admits to anxiety and depression, , SI attempts by ingesting Seroquel, no HI Heme/Lymph: No Bruising, No Bleeding,No Lymphadenopathy Endocrine : No Polyuria, No Polydipsia, No Temperature Intolerance PMFSH Past Medical History Medical History (Updated 08/04/23 @ 17:11 by Misty Wood MD) Substance abuse Alcohol abuse Hypothyroid Asthma GERD (gastroesophageal reflux disease) Gastritis Celiac disease Social History Social History Alcohol intake: current Alcohol intake frequency: 0-2 drinks per day Patient Tobacco Use Status: Former Tobacco user Smoked in Last 30 Days: No Use of substances other than those prescribed or required for medical reasons: Yes Substance Use Type: Crack/Cocaine Last Used Substance: Just Prior to Admission Advance Directives: No Advance Directives Information Provided: No Physical Exam 2 Vital Signs: Vital Signs: Last Vital Signs Temp 97.4 F 08/04/23 16:28 Pulse 95 08/04/23 16:28 Resp 18 08/04/23 16:28 BP 163/103 H 08/04/23 16:28 Pulse Ox 97 08/04/23 16:28 O2 Del Method Room Air 08/04/23 16:28 BMI result Body Mass Index 32.8 Const: Other: Appearance: Alert. Oriented X3. No acute distress. Eyes: Pupils equal, round and reactive to light. ENT: Pharynx normal. Neck: Normal inspection. Neck supple. No lymph nodes noted. No crepitus CVS: Normal heart rate and rhythm. Pulses normal. Normal S1 and S2 Respiratory: No respiratory distress. Breath sounds normal. No Wheezing. No rales Abdomen: Soft and nontender. No rigidity. No distention. Skin: Skin warm and dry. Normal skin color. Normal skin turgor. Extremities: No lower extremity edema. No Lacerations. No Rash Neuro: Oriented X 3. No motor deficit. No sensory deficit. Moving all extremities. No slurred speech. CN 2 through 12 grossly intact Psych: calm, cooperative, normal affect Course Course Course Narrative: RME - 38 yo female with history of asthma, Celiac disease, GERD, hypothyroidism, depression/anxiety, PTSD, HTN, polysubstance abuse (cocaine, crack, ETOH) who presents to the ER for evaluation of binge drinking x4 days and SI attempts. She states she is recently homeless and has been heavily drinking and trying to kill herself by taking all of her sleeping pills. Admits to 8 beers and 9 nips today, a lot of cocaine. Not eating and not taking any of her other medications. NOT suicidal at this time. Plan: lab workup, medically clear and then CARE team vs Addiction medicine evaluation once sober Medical Decision Making Medical Decision Making MDM Narrative: -all of patient's labs are pending -vitals within normal limits, no signs or symptoms of withdrawal at this time -patient is on a Section 12 -care team consult pending -my interpretation of labs: Urine analysis positive for a small amount of leukocyte esterase and white blood cell counts. However, patient had a similar urine less than a month ago, microbiology did not grow any particular organism that would cause UTI. Patient asymptomatic, no treatment with antibiotics needed. Patient has no abdominal pain, no flank pain, pyelonephritis or sepsis not suspected. -urine toxicology tested positive for cocaine and marijuana -COVID negative, hematology and chemistry unremarkable, ETOH less than 10. Patient states that she has been drinking quite a bit. Patient states that she heavily drank alcohol today, her labs show no alcohol present. -care Team consult pending, patient on a Section 12 Differential Diagnosis Differential Diagnoses: The differential diagnosis associated with the presentation includes (Alcohol abuse, substance abuse, suicidal ideation, suicide attempt) Admission/Observation Consideration of admission/observation: Escalation of care including admission/observation considered (Patient is on a Section 12, patient will be in the emergency room on observation until medically cleared and be seen by the care team) Lab Data MDM Lab Attestation statement: I reviewed the patient's lab results. 08/04/23 17:11 08/04/23 17:11 Labs: Lab Results 08/04/23 08/04/23 08/04/23 Range/Units 17:11 17:12 17:20 WBC 7.2 (4.8-10.8) X10*3/uL RBC 4.54 (4.20-5.50) X10*6/uL Hgb 13.6 (12.0-16.0) g/dl Hct 40.3 (37.0-47.0) % MCV 88.8 (80.0-98.0) fL MCH 30.0 (27.0-33.0) pg MCHC 33.7 (31.0-35.0) g/dl RDW 12.6 (11.0-16.0) % Plt Count 359 (160-400) X10*3/uL MPV 9.3 L (9.4-12.3) fL Immature Gran % (Auto) 0.7 H (0.0-0.4) % Neut % (Auto) 55.2 (45-73) % Lymph % (Auto) 33.8 (20-40) % [place] % (Auto) 6.0 (2-11) % Eos % (Auto) 2.9 (0-4) % Baso % (Auto) 1.4 (0-2) % Lymph # (Auto) 2.4 (1.2-4.9) X10*3/uL [place] # (Auto) 0.4 (0.1-1.2) X10*3/uL Eos # (Auto) 0.2 (0.0-0.4) X10*3/uL Baso # (Auto) 0.1 (0.0-0.2) X10*3/uL Abs Immat Gran (auto) 0.05 H (0.00-0.03) X10*3/uL Absolute Neuts (auto) 4.0 (2.0-8.3) x10*3/uL Absolute Nucleated RBC 0.000 (0.0-0.012) X10*3/uL Nucleated RBC % (auto) 0.0 (0.0-0.2) /100WBC PT 12.6 (11.1-13.3) SEC INR 1.0 (0.9-1.1) Sodium 138 (135-145) mmol/L Potassium 3.6 (3.3-5.1) mmol/L Chloride 105 (96-108) mmol/L Carbon Dioxide 25 (22-29) mmol/L Anion Gap 12 (12-20) BUN 12 (9-16) mg/dL Creatinine 0.83 (0.5-1.4) mg/dL Estim Creat Clear Calc 96.1 Estimated GFR > 60 Random Glucose 98 (60-115) mg/dL Calcium 9.3 D (8.4-10.2) mg/dL Magnesium 2.1 (1.6-2.6) mg/dL Total Bilirubin 0.2 (0.0-1.0) mg/dL Direct Bilirubin < 0.2 (0.0-0.5) mg/dL AST 17 (5-31) U/L ALT 18 (0-31) U/L Alkaline Phosphatase 73 (39-117) U/L Troponin I High Sens < 2.7 (<3.5-17.0) ng/L Total Protein 7.5 (6.5-8.0) g/dL Albumin 4.3 (3.5-5.0) g/dL Beta HCG, Quant < 2 mIU/mL Urine Color Yellow Urine Appearance Clear Urine pH 6.0 (5.0-9.0) Ur Specific [place] 1.015 (1.005-1.025) Urine Protein Negative (Neg-Trace) mg/dL Urine Glucose (UA) Negative (Negative) mg/dL Urine Ketones Negative (Negative) mg/dL Urine Blood Negative (Negative) Urine Nitrite Negative (Negative) Ur Leukocyte Esterase Small (1+) H (Negative) Urine RBC 0-2 (0-2) /HPF Urine WBC 6-10 H (0-5) /HPF Ur Squamous Epith Cells 3-5 (0-2) /HPF Urine Bacteria None Seen (None Seen) Hyaline Casts 0-2 (0-2) /LPF Urine Opiates Screen Not Detected (Not Detect) Urine Fentanyl Screen Not Detected (Not Detect) Ur Barbiturates Screen Not Detected (Not Detect) Ur Phencyclidine Scrn Not Detected (Not Detect) Ur Amphetamines Screen Not Detected (Not Detect) U Benzodiazepines Scrn Not Detected (Not Detect) Urine Cocaine Screen POSITIVE H (Not Detect) U Marijuana (THC) Screen POSITIVE H (Not Detect) Ethyl Alcohol < 10 mg/dL COVID-19 (JANE) Negative (Negative) COVID-19 Clin Com See Note Critical Care Time Critical Care Time Critical Care Time: Yes Total Critical Care Time: 60 Attestation: I have personally provided critical care time. Time includes review of lab data, radiology results, discussion with consultants, and monitoring for potential decompensation. Intervention performed as documented. Discharge Plan Discharge Clinical Impression: Alcohol abuse, Polysubstance abuse, Suicide ideation Patient Disposition: Still a Patient Prescriptions: No Action cephalexin 500 mg capsule 500 mg PO Q12H Qty: 10 0RF sulfamethoxazole-trimethoprim [Bactrim DS] 800-160 mg tablet 1 tab PO Q12H Qty: 14 0RF polyethylene glycol 3350 [Miralax] 17 gram powder in packet 17 g PO BID Qty: 100 0RF bisacodyl [Dulcolax (bisacodyl)] 5 mg tablet,delayed release (DR/EC) 10 mg PO BEDTIME 2 Days Qty: 4 0RF nitrofurantoin monohyd/m-cryst [Macrobid] 100 mg capsule 100 mg PO Q12H 5 Days Qty: 10 0RF Rx Instructions: must administer with a meal/food ondansetron HCl 4 mg tablet 4 mg PO Q8H PRN (Reason: nausea and vomiting) 4 Days Qty: 7 0RF
--- NOTE | 2023-08-04 16:59 | ECG_ITS ---
Test Reason : CHEST PAIN Blood Pressure : / mmHG Vent. Rate : 083 BPM Atrial Rate : 083 BPM P-R Int : 120 ms QRS Dur : 084 ms QT Int : 400 ms P-R-T Axes : 025 -20 009 degrees QTc Int : 470 ms Normal sinus rhythm Moderate voltage criteria for LVH, may be normal variant ( R in aVL , Prince product ) Nonspecific ST abnormality Abnormal ECG When compared with ECG of 30-JUL-2020 23:44, No significant change was found Referred By: Misty Wood Electronically Signed By:DAVINA VASQUEZ
[2023-08-04 17:24] LABS: MANUAL DIFF FLAG NO
[2023-08-04 17:26] LABS: Basophils Absolute Auto 0.1 X10*3/uL (0.0-0.2); Basophils Percent Auto 1.4 % (0-2); Eosinophils Absolute Auto 0.2 X10*3/uL (0.0-0.4); Eosinophils Percent Auto 2.9 % (0-4); Hematocrit 40.3 % (37.0-47.0); Hemoglobin 13.6 g/dl (12.0-16.0); Imm Gran Abs Auto 0.05 X10*3/uL (0.00-0.03); Imm Gran Pct Auto 0.7 % (0.0-0.4); Lymphocytes Absolute Auto 2.4 X10*3/uL (1.2-4.9); Lymphocytes Percent Auto 33.8 % (20-40); Mean Corpuscular HGB Conc 33.7 g/dl (31.0-35.0); Mean Corpuscular Volume 88.8 fL (80.0-98.0); Mean Platelet Volume 9.3 fL (9.4-12.3); Monocytes Absolute Auto 0.4 X10*3/uL (0.1-1.2); Neutrophils Percent Auto 55.2 % (45-73); Platelet Count 359 X10*3/uL (160-400); Red Blood Count 4.54 X10*6/uL (4.20-5.50); Red Cell Distribution Width 12.6 % (11.0-16.0); White Blood Count 7.2 X10*3/uL (4.8-10.8)
[2023-08-04 17:34] LABS: Appearance Urine Clear; Color Urine Yellow; Glucose Urine UA Negative (Negative); Leukocyte Esterase Urine Small (1+) (Negative); Nitrite Urine Negative (Negative); Specific Gravity - Urine 1.015 (1.005-1.025); UMIC TRIGGER UACC YES; Urine Blood Negative (Negative); Urine Ketones Negative (Negative); Urine Protein Negative (Neg-Trace)
[2023-08-04 17:35] LABS: Amphetamine Screen Urine Not Detected (Not Detect); Barbiturates, Urine Not Detected (Not Detect); Benzodiazepines Screen Urine Not Detected (Not Detect); Cannabinoid Screen Urine POSITIVE (Not Detect); Cocaine Screen Urine POSITIVE (Not Detect); Fentanyl, urine Not Detected (Not Detect); Opiate Screen Urine Not Detected (Not Detect); Phencyclidine Screen Urine Not Detected (Not Detect)
[2023-08-04 17:35] LABS: Prothrombin Time 12.6 SEC (11.1-13.3)
[2023-08-04 17:42] LABS: Ethanol < 10 mg/dL
[2023-08-04 17:43] LABS: Alanine Aminotransferase 18 U/L (0-31); Albumin Level 4.3 g/dL (3.5-5.0); Alkaline Phosphatase 73 U/L (39-117); Anion Gap 12 (12-20); Aspartate Amino Transferase 17 U/L (5-31); Bilirubin Direct < 0.2 mg/dL (0.0-0.5); Bilirubin Total 0.2 mg/dL (0.0-1.0); Blood Urea Nitrogen 12 mg/dL (9-16); Calcium 9.3 mg/dL (8.4-10.2); Carbon Dioxide 25 mmol/L (22-29); Chloride 105 mmol/L (96-108); Creatinine Clr Calc Pharmacy 96.1; Estimated Glomerular Filt Rate > 60; Glucose Random 98 mg/dL (60-115); Magnesium 2.1 mg/dL (1.6-2.6); Potassium 3.6 mmol/L (3.3-5.1); Sodium 138 mmol/L (135-145); Total Protein 7.5 g/dL (6.5-8.0)
[2023-08-04 17:50] LABS: HCG Quantitative < 2 mIU/mL; Troponin-I High Sensitivity < 2.7 ng/L (<3.5-17.0)
[2023-08-04 17:53] LABS: COVID-19 Test Negative (Negative); IDNOW Serial# 08D9AD1C
--- NOTE | 2023-08-04 17:54 | PC.NURSE ---
pt a&ox3. respirations even and unlabored. skin warm pink and moist. pt reports she wants to detox. prior to coming to the ED pt had thoughts of SI and drinking herself to . pt states she had a large bottle of vodka, with multiple fireball nips. pt also states she did cocaine prior to coming in. pt reports having alcohol withdraw before. pt reporting 10/10 abdominal pain with nausea. abdomen soft non tender with normal active bowel sounds in all 4 quadrants. pt denies chest pain, vomiting and diarrhea. pt normal sinus on tele. pt currently denying SI/HI. seizure precautions in place. pt changed over. belongings placed in pod closet.
[2023-08-04 17:56] LABS: Bacteria Urine None Seen (None Seen); Hyaline Casts Urine 0-2 /LPF (0-2); RBC Urine 0-2 /HPF (0-2); UACC Culture Trigger YES
[2023-08-04 18:36] VITALS: PULSE 76
--- NOTE | 2023-08-04 18:41 | PC.NURSE ---
Patient alert and oriented, arrived from home requesting help with detox. Patient reports drinks 2 handles of vodka per day, last drank a large amount of etoh on ride here. Patient states last used cocaine yesterday, was trying to detox from etoh on her own but started to feel terrible so drank more prior to coming here. Reports SI, with no plan. Denies HI, states that all she thinks about is drinking. No s/s of withdrawal at this time. Good appetite for dinner, denies pain or discomfort, ambulating on unit gait steady.
[2023-08-04] MEDS: LORazepam 1 MG TABLET 2 MG PO (20:54)
[2023-08-04] MEDS: Famotidine 20 MG TABLET PO (20:55)
[2023-08-04] MEDS: Gabapentin 400 MG CAPSULE 800 MG PO (20:55)
[2023-08-04] MEDS: Losartan Potassium 25 MG TABLET PO (20:55)
[2023-08-04] MEDS: amLODIPine Besylate 5 MG TABLET PO (20:55)
[2023-08-04] MEDS: QUEtiapine Fumarate 50 MG TABLET 250 MG PO (20:55)
[2023-08-04 21:10] VITALS: BP 195/119; PULSE 97; RESP 20; TEMP 36.6; O2SAT 97
[2023-08-05] MEDS: Levothyroxine Sodium 125 MCG TABLET PO (06:42)
[2023-08-05] MEDS: Omeprazole 20 MG CAPSULE.DR PO (06:42)
[2023-08-05 06:46] VITALS: BP 125/68; PULSE 72; RESP 17; TEMP 36.6; O2SAT 96
--- NOTE | 2023-08-05 06:49 | PC.NURSE ---
Patient slept through the night, no distress observed/reported, behavior non concerning at this time but was very argumentative, Ativan 2 mg po administered at 2053 with + effect, medication compliant, care consult ordered/pending evaluation, VSS now/ was hypertensive, asymptomatic of etoh withdrawal, labs completed/resulted, will continue to monitor.
--- NOTE | 2023-08-05 07:19 | PC.NURSE ---
patient appears to remain at rest at present respirations are even and unlabored patient appears in no distress.
[2023-08-05] MEDS: Gabapentin 400 MG CAPSULE 800 MG PO ×3 (09:10→23:00)
[2023-08-05] MEDS: LORazepam 1 MG TABLET 2 MG PO ×2 (09:10→23:02)
[2023-08-05] MEDS: Mirabegron 25 MG TAB.ER.24H PO (09:10)
[2023-08-05] MEDS: gemfibroziL 600 MG TABLET PO (09:10)
[2023-08-05] MEDS: amLODIPine Besylate 5 MG TABLET PO (09:10)
[2023-08-05] MEDS: Famotidine 20 MG TABLET PO (09:10)
[2023-08-05] MEDS: Losartan Potassium 25 MG TABLET PO (09:17)
[2023-08-05 13:50] VITALS: BP 125/86; PULSE 81; RESP 14; TEMP 36.7; O2SAT 98
--- NOTE | 2023-08-05 15:35 | PC.NURSE ---
CIWA 8- unable to add CIWA to worklist- agitation/anxiety only sx noted. otherwise rest are 0.
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
[2023-08-05] MEDS: chlordiazePOXIDE HCl 25 MG CAPSULE 50 MG PO (16:12)
--- NOTE | 2023-08-05 16:15 | PC.NURSE ---
arnaldo bran aware pt continues declining to go upstairs w/o vanessa bran notified again.
--- NOTE | 2023-08-05 16:28 | PC.NURSE ---
per MD arnaldo bran: she can wait for the meds to kick in a bit and come up, or remain in the ED. states i'll DC her admission orders while reassessing pt response from anxiety s/p librium. mark ayala upstairs notified of this plan.
--- NOTE | 2023-08-05 16:41 | PC.NURSE ---
paged chris riddle/arnaldo bran in tiger text as pt continues to vacillate if wants to go upstairs- she said will go up if she gets 1mg ativan- md arnaldo bran notified again.
--- NOTE | 2023-08-05 16:47 | PC.NURSE ---
called floor - notifiying mark that md bran replacing admission order as pt state will go up if she gets ativan. pt at nurses station talking, eating sandwhich, no longer agitated, talking calmly
[2023-08-05] MEDS: LORazepam 1 MG TABLET PO (16:51)
--- NOTE | 2023-08-05 16:53 | PC.NURSE ---
mark ayala on way to get pt
--- NOTE | 2023-08-05 18:18 | PC.ADMIT ---
Joanne is a 38-year-old female admitted from [facility] to M3 08/05/23 1701 on a CV for treatment of unspecified depressive d/o, PTSD, and substance use d/o. Pt reports worsening anxiety and depression over the past several days. She has been actively trying to drink herself to and attempting to overdose on Seroquel in an attempt to complete suicide. Tox screen positive for cocaine and THC. Pt reports drinking 1 liter vodka last night, pt is currently on a CIWA Q2h. Pt is currently homeless and does not have an adequate support system. Pt has a history of inpatient hospitalizations, substance use treatments, suicide attempts, and medication non-adherence. Pt attributes the loss of her mother as a recent stressor. Pt is pleasant and cooperative. Thought process is linear, no overt psychosis observed. Pt is future-oriented and wants to receive treatment, she hopes to be discharged to a TSS program. Pt denies SI/HI/AH/VH but will reach out to staff if thoughts occur.
[2023-08-05 18:45] VITALS: BP 136/96; PULSE 106; RESP 18; TEMP 36.3; O2SAT 98
[2023-08-05 22:11] VITALS: BP 128/94; PULSE 103; RESP 18; TEMP 36.4; O2SAT 96
--- NOTE | 2023-08-05 22:16 | PC.NURSE ---
Pt. put in 3-day notice up on 08/08/23. 3-day received on 08/05/23- Parties involved notified.
[2023-08-05] MEDS: QUEtiapine Fumarate 50 MG TABLET 250 MG PO (23:01)
[2023-08-05] MEDS: Melatonin 3 MG TABLET 6 MG PO (23:02)
[2023-08-05] MEDS: hydrOXYzine HCL 25 MG TABLET PO (23:02)
[2023-08-05] MEDS: Ondansetron ODT 4 MG TAB.RAPDIS TRANSLINGU (23:37)
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
[2023-08-06] MEDS: Levothyroxine Sodium 125 MCG TABLET PO (06:55)
[2023-08-06] MEDS: chlordiazePOXIDE HCl 25 MG CAPSULE PO ×2 (07:01→11:06)
[2023-08-06 07:54] LABS: Estimated Average Glucose 97 mg/dL
[2023-08-06 08:11] LABS: Alanine Aminotransferase 14 U/L (0-31); Albumin Level 3.7 g/dL (3.5-5.0); Alkaline Phosphatase 65 U/L (39-117); Anion Gap 11 (12-20); Aspartate Amino Transferase 14 U/L (5-31); Bilirubin Total 0.2 mg/dL (0.0-1.0); Blood Urea Nitrogen 14 mg/dL (9-16); Calcium 8.9 mg/dL (8.4-10.2); Carbon Dioxide 24 mmol/L (22-29); Chloride 104 mmol/L (96-108); Cholesterol 165 mg/dL (<200); Creatinine Clr Calc Pharmacy 110.8; Estimated Glomerular Filt Rate > 60; Glucose Fasting 97 mg/dL (60-99); HDL Cholesterol 33 mg/dL (>40); LDL Cholesterol Calculated 104 mg/dL (<100); Potassium 3.4 mmol/L (3.3-5.1); Sodium 136 mmol/L (135-145); Total Protein 6.5 g/dL (6.5-8.0); Triglycerides 144 mg/dL (<150)
[2023-08-06 08:32] LABS: Folate 10.8 ng/mL (> or = 4.0); Vitamin B12 321 pg/mL (200-900)
[2023-08-06 08:40] LABS: Free T4 (Free Thyroxine) 0.63 ng/dL (0.71-1.85); Thyroid Stimulating Hormone 22.63 uIU/mL (0.32-4.0)
[2023-08-06 09:01] VITALS: BP 154/98; PULSE 95; RESP 18; TEMP 36.7; O2SAT 98
[2023-08-06] MEDS: Fluticasone/Vilanterol 200/25 BLST.W.DEV 1 PUFF INHALE (09:24)
[2023-08-06] MEDS: Mirabegron 25 MG TAB.ER.24H PO (09:24)
[2023-08-06] MEDS: Losartan Potassium 25 MG TABLET PO (09:24)
[2023-08-06] MEDS: Omeprazole 20 MG CAPSULE.DR PO ×2 (09:24→17:06)
[2023-08-06] MEDS: gemfibroziL 600 MG TABLET PO ×2 (09:24→17:07)
[2023-08-06] MEDS: Gabapentin 400 MG CAPSULE 800 MG PO ×3 (09:24→19:53)
[2023-08-06] MEDS: Famotidine 20 MG TABLET PO ×2 (09:24→19:54)
[2023-08-06] MEDS: busPIRone HCl 10 MG TABLET 20 MG PO ×3 (09:25→19:54)
[2023-08-06] MEDS: amLODIPine Besylate 5 MG TABLET PO (09:25)
[2023-08-06] MEDS: Ondansetron ODT 4 MG TAB.RAPDIS TRANSLINGU ×2 (09:30→17:09)
[2023-08-06] MEDS: Nicotine Polacrilex Lozenge 4 MG LOZENGE BUCCAL (10:12)
[2023-08-06] MEDS: Ibuprofen 800 MG TABLET PO (10:51)
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
[2023-08-06] MEDS: Venlafaxine HCl ER 75 MG CAP.ER.24H 225 MG PO (14:27)
[2023-08-06] MEDS: polyethylene glycoL 3350 17 GM POWD.PACK PO (14:27)
[2023-08-06] MEDS: diazePAM 5 MG TABLET PO ×3 (14:27→19:05)
[2023-08-06] MEDS: Docusate Sodium 100 MG CAPSULE PO ×2 (14:28→19:54)
[2023-08-06] MEDS: Multivitamin TABLET 1 TAB PO (14:28)
--- NOTE | 2023-08-06 15:13 | MHC.CLN ---
NUTRITION CONSULT FOR UNINTENDED WEIGHT LOSS X ONE MONTH. REVIEW OF WEIGHT HX SHOWS SIGNIFICANT WEIGHT LOSS X LESS THAN ONE MONTH OF -7.5%. HX IBS, ABDOMINAL PAIN, CONSTIPATION AND GERD. STATED THAT CELIAC WAS AN INCORRECT DX AND TOLERATES GLUTEN. REPORTS THAT CURRENT INTAKE IS POOR DUE TO DETOXING . LIKELY CONTRIBUTORS TO WEIGHT LOSS ARE ETOH ABUSE, COCAINE USE AND HOMELESSNESS. ADDING ENSURE MAX PROTEIN PER CONVERSATION WITH PATIENT. PROVIDES 450 KCALS, 90 G PROTEIN. ENCOURAGE PATIENT TO SELECT FOODS THAT SHE COULD MOST LIKELY TOLERATE.
[2023-08-06] MEDS: Calcium + Vitamin D 250 MG TABLET 500 MG PO (17:06)
[2023-08-06] MEDS: OLANZapine 5 MG TABLET PO (19:04)
[2023-08-06 19:52] VITALS: BP 163/85; PULSE 95; RESP 18; TEMP 36.7; O2SAT 98
[2023-08-06] MEDS: Prazosin HCL 1 MG CAPSULE 2 MG PO (19:53)
[2023-08-06] MEDS: Melatonin 3 MG TABLET 6 MG PO (19:54)
[2023-08-06] MEDS: QUEtiapine Fumarate 50 MG TABLET 250 MG PO (19:54)
[2023-08-06 21:41] VITALS: BP 121/61; PULSE 112; RESP 18; TEMP 36.6
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
[2023-08-07] MEDS: diazePAM 5 MG TABLET 10 MG PO ×2 (03:54→08:58)
[2023-08-07 07:00] VITALS: BMI 38.2
[2023-08-07 08:50] VITALS: BP 149/79; PULSE 96; RESP 16; TEMP 36.4; O2SAT 97
[2023-08-07] MEDS: Gabapentin 400 MG CAPSULE 800 MG PO ×3 (08:58→21:48)
[2023-08-07] MEDS: Nicotine Polacrilex Lozenge 4 MG LOZENGE BUCCAL ×3 (08:58→22:12)
[2023-08-07] MEDS: Fluticasone/Vilanterol 200/25 BLST.W.DEV 1 PUFF INHALE (08:58)
[2023-08-07] MEDS: Losartan Potassium 25 MG TABLET PO (08:59)
[2023-08-07] MEDS: Multivitamin TABLET 1 TAB PO (08:59)
[2023-08-07] MEDS: Levothyroxine Sodium 150 MCG TABLET PO (08:59)
[2023-08-07] MEDS: Venlafaxine HCl ER 75 MG CAP.ER.24H 225 MG PO (08:59)
[2023-08-07] MEDS: Docusate Sodium 100 MG CAPSULE PO ×2 (08:59→21:48)
[2023-08-07] MEDS: Famotidine 20 MG TABLET PO ×2 (08:59→21:48)
[2023-08-07] MEDS: gemfibroziL 600 MG TABLET PO ×2 (09:00→16:06)
[2023-08-07] MEDS: Omeprazole 20 MG CAPSULE.DR PO ×2 (09:00→16:06)
[2023-08-07] MEDS: amLODIPine Besylate 5 MG TABLET PO (09:00)
[2023-08-07] MEDS: Calcium + Vitamin D 250 MG TABLET 500 MG PO (09:00)
[2023-08-07] MEDS: busPIRone HCl 10 MG TABLET 20 MG PO (09:00)
[2023-08-07] MEDS: hydrOXYzine HCL 50 MG TABLET PO (09:00)
[2023-08-07] MEDS: polyethylene glycoL 3350 17 GM POWD.PACK PO (09:01)
[2023-08-07] MEDS: OLANZapine 5 MG TABLET PO (09:09)
[2023-08-07] MEDS: Mirabegron 25 MG TAB.ER.24H PO (09:09)
[2023-08-07] MEDS: Ondansetron ODT 4 MG TAB.RAPDIS TRANSLINGU ×3 (09:17→21:52)
[2023-08-07 11:40] VITALS: BP 153/88; PULSE 97
[2023-08-07] MEDS: Prazosin HCL 1 MG CAPSULE PO ×2 (11:41→14:51)
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
[2023-08-07 14:45] VITALS: BP 147/79; PULSE 92
--- NOTE | 2023-08-07 15:55 | MHC.RECOVRN ---
Met with pt to discuss recovery goals. Pt states she has been drinking since she was 16 yo, with intermittent periods of sobriety, longest being 1 year. Pt states she drinks 1-2 handles of hard alcohol, and she drinks to point of blackout. Pt reports hx of withdrawal symptoms from alcohol. States she has tried naltrexone and vivitrol in the past, but that she is allergic (anaphylactic response). Reports she has been to detox multiple times, and has also been section 35'd a few times . Pt interested in a recovery assistant. Folder of resources left with pt to look over. Plan for referral to recovery assistant and recovery team to follow up.
[2023-08-07] MEDS: Ibuprofen 800 MG TABLET PO (16:06)
[2023-08-07 21:45] VITALS: BP 128/76; PULSE 94; RESP 18; TEMP 36.7; O2SAT 97
[2023-08-07] MEDS: Melatonin 3 MG TABLET 6 MG PO (21:49)
[2023-08-07] MEDS: Prazosin HCL 1 MG CAPSULE 2 MG PO (21:49)
[2023-08-07] MEDS: QUEtiapine Fumarate 50 MG TABLET 250 MG PO (21:50)
[2023-08-08] MEDS: gemfibroziL 600 MG TABLET PO (06:34)
[2023-08-08] MEDS: Levothyroxine Sodium 150 MCG TABLET PO (06:34)
[2023-08-08] MEDS: Ibuprofen 800 MG TABLET PO (06:58)
[2023-08-08] MEDS: Omeprazole 20 MG CAPSULE.DR PO (07:12)
[2023-08-08] MEDS: Venlafaxine HCl ER 75 MG CAP.ER.24H 225 MG PO (08:05)
[2023-08-08] MEDS: Calcium + Vitamin D 250 MG TABLET 500 MG PO (08:06)
[2023-08-08] MEDS: Famotidine 20 MG TABLET PO (08:07)
[2023-08-08] MEDS: Mirabegron 25 MG TAB.ER.24H PO (08:07)
[2023-08-08] MEDS: amLODIPine Besylate 5 MG TABLET PO (08:07)
[2023-08-08] MEDS: Multivitamin TABLET 1 TAB PO (08:07)
[2023-08-08] MEDS: Prazosin HCL 1 MG CAPSULE PO (08:08)
[2023-08-08] MEDS: Gabapentin 400 MG CAPSULE 800 MG PO (08:08)
[2023-08-08] MEDS: Docusate Sodium 100 MG CAPSULE PO (08:08)
[2023-08-08] MEDS: Losartan Potassium 25 MG TABLET PO (08:09)
[2023-08-08] MEDS: polyethylene glycoL 3350 17 GM POWD.PACK PO (08:09)
[2023-08-08] MEDS: diazePAM 5 MG TABLET PO (08:09)
[2023-08-08] MEDS: Fluticasone/Vilanterol 200/25 BLST.W.DEV 1 PUFF INHALE (08:10)
[2023-08-08 08:11] VITALS: BP 120/76; PULSE 74; RESP 18; TEMP 36.7; O2SAT 98
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
== END 2023-08-08 11:16 | disposition home or self-care (01) | DRG 882 ==
LOC: HO.ED 19:26 → HO.PADLT16 08-05 15:38
PROVIDERS: Physician Assistant; Admitting Provider Psychiatry & Neurology Psychiatry; Emergency Provider Emergency Medicine; PCP Physician Assistant Medical; Visit Provider Psychiatry & Neurology Psychiatry
DX: F43.10 Post-traumatic stress disorder, unspecified (principal); R45.851 Suicidal ideations; F14.10 Cocaine abuse, uncomplicated; F17.210 Nicotine dependence, cigarettes, uncomplicated; F10.10 Alcohol abuse, uncomplicated; Z71.6 Tobacco abuse counseling; E03.9 Hypothyroidism, unspecified; K90.0 Celiac disease; Z59.02 Unsheltered homelessness; Z91.040 Latex allergy status; Z79.890 Hormone replacement therapy; Z79.899 Other long term (current) drug therapy
CPT/HCPCS: 36415; 80048; 80053; 80061; 80076; 80307; 81001; 82607; 82746; 83036; 83735; 84439; 84443; 84484; 84702; 85025; 85610; 87086; 87635; 93005; 99285; S9485

== ENCOUNTER → 2023-08-05 15:24 | Outpatient (BNV) | payer MEDICARE, MEDICAID, SELFPAY | PROVIDERS: Admitting Provider Psychiatry & Neurology Psychiatry; Emergency Provider Emergency Medicine; PCP Physician Assistant Medical; Visit Provider Psychiatry & Neurology Psychiatry | DX: F43.10 Post-traumatic stress disorder, unspecified (principal); F14.10 Cocaine abuse, uncomplicated; F12.90 Cannabis use, unspecified, uncomplicated; F10.90 Alcohol use, unspecified, uncomplicated | CPT/HCPCS: 90792; 99232; 99239 ==